=== PATIENT | female | born 1965 | race Caucasian/White ===

== ENCOUNTER → 2019-06-09 10:35 | Outpatient (CLI) | payer OTHER, SELFPAY ==
--- NOTE | ~2019-06-09 | US_ITS ---
EXAMINATION: US transvaginal EXAM DATE: 06/09/2019 11:39 INDICATION: Abnormal vaginal bleeding postmenopausal bleeding. TECHNIQUE: Pelvic transvaginal sonogram was performed. There are multiple grayscale and Doppler imag es available for interpretation. There is no prior study for comparison. FINDINGS: Uterus measures 7.4 x 5.9 x 5.2 cm, with a fibroid in the fundus measuring about 2.6 cm. E ndometrial stripe measures 5-6 mm, within normal limits. There is no free pelvic fluid. Right adnexa: The ovary measures 2.4 x 1.5 x 1.1 cm and is morphologically normal. Ovarian vascular f low confirmed. Left adnexa: The ovary measures 2.1 x 1.2 x 2.5 cm and is morphologically normal. Ovarian vascular fl ow confirmed. IMPRESSION: 1. Single fundal 2.6 cm fibroid. Reviewed, dictated and finalized at location B. K DIGGER
== END ==
PROVIDERS: PCP Family Medicine; Visit Provider Family Medicine
DX: N93.9 Abnormal uterine and vaginal bleeding, unspecified (principal); D25.9 Leiomyoma of uterus, unspecified
CPT/HCPCS: 76830

== ENCOUNTER → 2020-05-23 15:34 | Outpatient (CLI) | payer OTHER, SELFPAY ==
--- NOTE | ~2020-05-23 | MM_ITS ---
EXAMINATION: MM screening samuel BI w joanna HISTORY: Screening mammogram TECHNIQUE: Craniocaudal and mediolateral oblique 3-D tomosynthesis images were obtained and synthetic 2-D images were generated. CAD analysis was submitted and interpreted. COMPARISON: 02/01/2016, 11/18/2013 bilateral digital screening mammogram examinations BREAST PARENCHYMAL COMPOSITION: There are scattered areas of fibroglandular density. FINDINGS: There is no evidence of suspicious mass, calcification, or architectural distortion to sugg est malignancy in either breast. There has been no suspicious interval change. IMPRESSION: 1. No mammographic evidence of malignancy. 2. Recommend routine screening mammography in one year. BI-RADS Category 1: Negative Reviewed, dictated and finalized at location A. AL MEDIA EXECUTIVE
== END ==
PROVIDERS: PCP Family Medicine; Visit Provider Obstetrics & Gynecology
DX: Z12.31 Encounter for screening mammogram for malignant neoplasm of breast (principal)
CPT/HCPCS: 77063; 77067

== ENCOUNTER → 2020-08-20 09:44 | Outpatient (CLI) | payer OTHER, SELFPAY ==
--- NOTE | ~2020-08-20 | US_ITS ---
US abdomen complete EXAMINATION: US Abdomen Complete INDICATION: Diffuse abdominal pain PROCEDURE: Realtime High Resolution abdomen ultrasound. COMPARISON: No prior studies for comparison FINDINGS: Gallbladder within normal limits. No gallstones, pericholecystic fluid, gallbladder wall t hickening or biliary dilatation. Common bile duct measures 4 mm. Liver echotexture is increased, consistent with fatty infiltration.. Pancreas within normal limits. Pancreatic tail is obscured by bowel gas. Spleen is unremarkeable. Renal echotexture is within norm al limits bilaterally without hydronephrosis, contour deforming mass or renal stone. Right kidney crystal sures 10.5 cm. Left kidney measures 11.9 cm. Visualized aspects of the aorta and IVC are within normal limits. Portal vein is patent. No sonograph ic Murry's sign indicated by the technologist. IMPRESSION: 1: Fatty infiltration of the liver. Reviewed, dictated and finalized at location A.
== END ==
PROVIDERS: PCP Family Medicine; Visit Provider Physician Assistant
DX: R10.9 Unspecified abdominal pain (principal); K76.0 Fatty (change of) liver, not elsewhere classified
CPT/HCPCS: 76700

== ENCOUNTER 2020-12-24 10:18 | Emergency (ER) | payer OTHER, SELFPAY ==
--- NOTE | ~2020-12-24 | CT_ITS ---
EXAMINATION: CT abdomen pelvis w con EXAM DATE: 12/24/2020 14:30 INDICATION: Right-sided abdominal pain. TECHNIQUE: Spiral CT of the abdomen and pelvis was performed following intravenous injection of 100 m L Omnipaque 350. Axial, coronal and sagittal images of the abdomen and pelvis were reviewed. The do se-length product (DLP) for this examination was 1343.69 mGy-cm. The exposure was tailored according to patient size (auto mA exposure control), and iterative reconstruction (ASIR) was used as addition al dose reduction technique. There is no prior study for comparison. FINDINGS: The liver, spleen, adrenal glands and pancreas are unremarkable. Gallbladder is unremarkab le. No biliary obstruction. There is caliectasis of the left renal inferior moiety, could be some c omponent of congenital narrowing at its junction with the pelvis. There is a 4 mm stone in a left low er calyx. No obstructing stones. Nephrograms are symmetric. No renal mass. Uterus is retroverted and probably has 3 cm fibroid. The bladder is unremarkable. There is no retroperitoneal or pelvic lymp hadenopathy. Small umbilical fat-containing hernia. The appendix is not positively visualized. There is no pericecal inflammatory change to suggest appe ndicitis. The stomach and small bowel are unremarkable. There is expected amount of colonic stool . No free intraperitoneal gas. The heart is normal in size. There are no pericardial or pleural effusions. The lung bases are unremarkable. There are no osteoblastic or osteolytic lesions identif ied. IMPRESSION: 1. No acute intra-abdominal findings. 2. Mild to moderate left renal inferior moiety caliectasis probably some congenital narrowing at the renal pelvis. No delayed nephrogram. 3. Left nephrolithiasis. 4. Small umbilical hernia. Reviewed, dictated and finalized at location A. IMPRESSION: 1. No acute intra-abdominal findings. 2. Mild to moderate left renal inferior moiety caliectasis probably some conge nital narrowing at the renal pelvis. No delayed nephrogram. 3. Left nephrolithiasis. 4. Small umbilical hernia.
[2020-12-24 10:49] VITALS: BP 128/66; PULSE 60; RESP 20; TEMP 36.4; O2SAT 100
[2020-12-24 11:11] LABS: Basophils Percent Auto 0.6 % (0.2-1.2); Eosinophils Absolute Auto 0.2 K/mm3 (0-0.3); Eosinophils Percent Auto 3.1 % (0-4.4); Hematocrit 43.3 % (37.0-47.0); Hemoglobin 13.3 g/dL (12.0-15.0); Immature Granulocyte Absolute 0.02 K/mm3 (0.00-0.031); Immature Granulocyte Percent A 0.3 % (0-0.5); Lymphocytes Absolute Auto 1.73 K/mm3 (0.9-3.2); Lymphocytes Percent Auto 24.7 % (18.3-44.2); Mean Corpuscular HGB Conc 30.7 g/dl (32-36); Mean Corpuscular Hemoglobin 27.5 pg (26-34); Mean Corpuscular Volume 89.5 fl (80-100); Mean Platelet Volume 10.7 fl (7.4-10.4); Monocytes Absolute Auto 0.5 K/mm3 (0.1-0.6); Monocytes Percent Auto 7.6 % (2.6-8.5); Neutrophils Absolute Auto 4.5 K/mm3 (1.3-6.7); Neutrophils Percent Auto 63.7 % (45.5-73.1); Platelet Count Result 266 k/mm3 (150-375); Red Blood Count 4.84 M/mm3 (4.2-5.4); Red Cell Distribution Width 14.7 % (11.5-14.5)
[2020-12-24 11:26] LABS: Anion Gap 8 mmol/L (8-16); Blood Urea Nitrogen 12 mg/dL (7-17); Carbon Dioxide 26 mmol/L (22-30); Chloride 106 mmol/L (98-107); Estimated CRCL calculation 89 ml/min; Estimated Glomerular Filt Rate > 60; Glucose 121 mg/dL (65-110); Potassium 4.1 mmol/L (3.4-5.0); Sodium 140 mmol/L (137-145)
[2020-12-24 12:22] LABS: Add Urine Microscopic? YES; Appearance Urine Clear (Clear); Bacteria Urine Trace /hpf; Bilirubin Urine Negative (Negative); Blood Urine 1+ (Negative); Color Urine Straw (Yellow); Glucose Urine UA Negative (Negative); Ketones Urine Negative (Negative); Leukocyte Esterase Ur Negative LEU/UL (Negative); Nitrate Urine Negative (Negative); Protein Urine Negative (Negative); RBC Urine 0-2 /hpf (0-2); Specific Grav Ur 1.008 (1.001-1.035); Squamous Epithelial Cell Urine Rare /hpf (Few); Urobilinogen Urine Negative mg/dL (<2.0); WBC Urine 0-3 /hpf
[2020-12-24 12:52] LABS: Alanine Aminotransferase 22 U/L (4-35); Alkaline Phosphatase 101 U/L (38-126); Aspartate Amino Transferase 35 U/L (14-36); Bilirubin,Total 0.2 mg/dL (0.2-1.3); Lipase 71 U/L (23-300)
--- NOTE | 2020-12-24 14:10 | ED.ABDPAIN ---
HPI - Abdominal Pain General Chief Complaint: Abdominal Pain Stated Complaint: right side/back pain/nauseated Time Seen by Provider: 12/24/20 12:15 Source: patient Mode of arrival: ambulatory Limitations: no limitations History of Present Illness HPI narrative: 55-year-old female Essentially healthy, no previous abdominal operations Complains of a 1 week history of right-sided mid abdominal and flank pain She has not noticed anything that makes it worse, able to eat without issue She has not really noticed anything that makes it feel better either No vomiting, no dysuria or hematuria, no fever, and had normal bowel movements Related Data Home Medications Medication Instructions Recorded Confirmed aspirin 81 mg tablet,delayed mg PO DAILY tablet 08/17/20 08/17/20 release diltiazem HCl 120 mg mg PO 08/17/20 08/17/20 capsule,extended release 24 hr Allergies Allergy/AdvReac Type Severity Reaction Status Date / Time guaifenesin Allergy Unknown rash Verified 12/24/20 12:12 theophylline Allergy Unknown Unknown Verified 12/24/20 12:12 Review of Systems Review of Systems: All systems reviewed & are unremarkable except as noted in HPI and below Constitutional: Constitutional: Reports no additional constitutional complaints, Denies chills, Denies fever(s) and Denies headache(s) Eyes: Eyes: Reports no additional eye complaints and Denies change in vision ENT: Denies headache(s) and Denies sore throat Cardiovascular: Cardiovascular: Denies chest pain and Denies dyspnea Respiratory: Respiratory: Denies cough and Denies dyspnea Gastrointestinal: Gastrointestinal: Reports abdominal pain, Denies diarrhea and Denies vomiting Genitourinary: Genitourinary: Denies urinary frequency and Denies dysuria Musculoskeletal: Musculoskeletal: Denies deformity, Denies arthralgias, Denies joint swelling and Denies numbness Integumentary/Breasts: Skin/Breast: Denies rash and Denies wounds Neurologic: Denies headache(s), Denies focal weakness and Denies numbness Psychiatric: Psychiatric: Reports no additional psychiatric complaints Endocrine: Endocrine: Reports no additional endocrine complaints Hematologic/Lymphatic: Hematologic/Lymphatic: Reports no additional hematologic/lymphatic complaints Allergic/Immunologic: Allergic/Immunologic: Reports no additional allergic/immunologic complaints PMFSH Past Medical History Medical History Atrial fibrillation Diverticulosis large intestine w/o perforation or abscess w/bleeding GERD (gastroesophageal reflux disease) History of seizure Hypersomnia Insomnia MDD (major depressive disorder) CECI (obstructive sleep apnea) Surgical History Surgical History History of knee surgery History of lumpectomy of left breast [place] teeth extracted Family History Family History Sibling Family history of thyroid disease Family history of diabetes mellitus in first degree relative Hypertension Family history of elevated blood lipids Mother Hypertension Family history of elevated blood lipids Atrial fibrillation by electrocardiogram Father Family history of gastrointestinal disorder Family history of elevated blood lipids Family history of coronary artery disease Hypertension Cerebrovascular accident, Onset Age: 67 Daughter Tuberculosis Other Family history of malignant neoplasm of male breast Social History Social History Social History: Smoking status: Never smoker Second hand tobacco smoke exposure: No Alcohol intake: current Drinks per week: 5 Substance use: never Substance use type: does not use 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
[2020-12-24 14:22] VITALS: BP 128/80; PULSE 52; RESP 18; O2SAT 100
== END 2020-12-24 16:01 | disposition home or self-care (01) ==
PROVIDERS: Emergency Medicine; Emergency Provider Emergency Medicine; PCP Family Medicine
DX: R10.9 Unspecified abdominal pain (principal); I48.91 Unspecified atrial fibrillation; K21.9 Gastro-esophageal reflux disease without esophagitis; G47.33 Obstructive sleep apnea (adult) (pediatric); K42.9 Umbilical hernia without obstruction or gangrene; N20.0 Calculus of kidney; Z79.82 Long term (current) use of aspirin
CPT/HCPCS: 36415; 74177; 80048; 80076; 81001; 83690; 85025; 99284; Q9967

== ENCOUNTER 2021-07-06 13:02 | Outpatient (CLI) | payer OTHER, SELFPAY | END 2021-07-06 13:03 | disposition home or self-care (01) | PROVIDERS: PCP Family Medicine; Visit Provider Surgery | DX: Z01.818 Encounter for other preprocedural examination (principal); K42.9 Umbilical hernia without obstruction or gangrene | CPT/HCPCS: 36415; 86850; 86900; 86901 ==

== ENCOUNTER 2021-07-11 00:28 | Day surgery (SDC) | payer OTHER, SELFPAY ==
[2021-07-03 12:13] VITALS: BMI 38.3
--- NOTE | 2021-07-03 12:26 | PC.NURSE ---
Report to the Outpatient Waiting Room, entrance under the green pavilion located off [facility], at time 9:30 on date 07/11/21. OR Time: 11:30. - You and your visitor will be asked a series of questions to screen for COVID 19 for your protection. - A mask is required within the hospital. One visitor will be allowed to accompany the patient into the hospital. Patients visitor will be instructed to remain with patient at all times or leave the building. We will allow the visitor to come back to the postoperative area when patient is ready. Preoperative COVID Testing Requirements: No COVID Test needed if: (proof is required; if not received patient will have Rapid Test prior to entry) - Patient has received COVID Vaccine at least 14 days prior to procedure date or - Patient has positive COVID test result within last 90 days of surgery date. COVID Test needed if above criteria is not met Patients may have clear liquids (water, carbonated beverages, clear teas, apple juice) until 3 hours prior to surgery (8:30) with a maximum of 20 ounces. - No food from midnight until time of surgery Take the following medications with a SIP of water the morning of surgery: DILTIAZEM, FLUOXETINE, ANTIBIOTIC (IF STILL TAKING) Medications to discontinue per physician: VITAMINS/SUPPLEMENTS Date to take last dose: 07/07/21 Please no make-up, nail vietnamese, hairspray, perfume, deodorant, or body powder the day of surgery. No jewelry (including any body piercings) or valuables the day of surgery, leave them at home. Please take a shower or bath the night before, or the morning of, surgery with an antibacterial soap. Wear comfortable, loose fitting clothing. - Jewelry must be removed prior to entering the operating room. Rings and piercings that are not removed may be cut off. - The hospital will not accept responsibility for valuables. - Please leave all valuables, including medications, at home the day of surgery. If you are going home after surgery, a licensed roll off driver must drive you home. - NO public transportation without another adult. - We recommend that an adult stay with you for 24 hours following discharge. - We also recommend that you do not drive, make important decision, drink alcoholic beverages, or take any drugs that were not prescribed by your health care provider for at least 24 hours after your discharge time. Follow any additional instructions given to you from your surgeon. Telephone instructions given to DON DALEY and asked if any additional questions and then verbalized understanding. Patient advised to call surgeon office or pre surgery nurse liaison [phone] if any additional questions.
[2021-07-11] VITALS (12 sets, daily range): BP systolic 99–123; BP diastolic 55–68; PULSE 43–66; RESP 13–18; TEMP 36.6; O2SAT 92–100
--- NOTE | 2021-07-11 08:15 | WPDANESEPPF ---
Anes - Initial Pre Proc Eval Procedure: Operation Date: 07/11/21 11:30 Proposed Procedures p Laparoscopic Umbilical Hernia Repair with Mesh, Davinci Assisted - Fermin Paniagua DO Date/Time: 07/11/21 08:15 Surgeon: Fermin Paniagua DO Pre Op Diagnosis: umbilical hernia Patient Data Age: 55 Gender: F Height: 1.7 m Weight: 111.13 kg Allergies Allergy/AdvReac Type Severity Reaction Status Date / Time guaifenesin Allergy Intermediate rash Verified 07/11/21 09:53 theophylline Allergy Intermediate Rash Verified 07/11/21 09:53 Home Medications Medication Instructions Recorded Confirmed Type fluoxetine 20 mg tablet 20 mg PO DAILY #90 tablet 06/17/20 07/11/21 Rx aspirin 81 mg tablet,delayed 162 mg PO DAILY tablet 08/17/20 07/11/21 History release diltiazem HCl 120 mg 120 mg PO DAILY 08/17/20 07/11/21 History capsule,extended release 24 hr cholecalciferol (vitamin D3) 125 mcg PO DAILY 07/03/21 07/11/21 History [Vitamin D3] Patient hx anesthesia problems: none Family hx anesthesia problems: none Results Review: All pre-operative results and documents have been reviewed as part of the pre-operative evaluation. [facility] Past Medical History Medical History (Updated 07/11/21 @ 08:16 by Celestino Johnson MD) Anxiety Atrial fibrillation Diverticulosis large intestine w/o perforation or abscess w/bleeding Fatty liver GERD (gastroesophageal reflux disease) History of seizure Hypersomnia Insomnia MDD (major depressive disorder) Obesity CECI (obstructive sleep apnea) Surgical History Surgical History History of knee surgery History of lumpectomy of left breast [place] teeth extracted Family History Family History Sibling Family history of thyroid disease Family history of diabetes mellitus in first degree relative Hypertension Family history of elevated blood lipids Mother Hypertension Family history of elevated blood lipids Atrial fibrillation by electrocardiogram Father Family history of gastrointestinal disorder Family history of elevated blood lipids Family history of coronary artery disease Hypertension Cerebrovascular accident, Onset Age: 67 Daughter Tuberculosis Other Family history of malignant neoplasm of male breast Social History Social History Social History: Smoking status: Never smoker Second hand tobacco smoke exposure: No Alcohol intake: current Drinks per week: 4 Substance use: never Substance use type: does not use Living arrangements: with family 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 Gender identity (if verbalized by the patient): Female Sexual Orientation (if Verbalized by the Patient): Straight or Heterosexual Spiritual care concerns: No Anes - Eval Final PreProcedure Day of Procedure 07/11/21 08:15 Patient weight: obese Heart: regular rate and rhythm Lungs: clear to auscultation and normal air movement Airway: Mallampati scale class II Neurological: alert and oriented Last oral intake: >/= 8 hours ASA classification: III Emergent: no Anesthetic plan: proceed Anesthesia type and monitoring: general ETT Results Review: All pre-operative results and documents have been reviewed as part of the pre-operative evaluation. Informed Consent: The patient's anesthetic plan and its attendant risks and benefits were discussed with the patient/family/POA. Questions were solicited and answers provided to the satisfaction of the patient/family/POA.
[2021-07-11] MEDS: ACETAMINOPHEN 500 MG TABLET 1000 MG PO (09:56)
[2021-07-11] MEDS: LACTATED RINGERS 1,000 ML 30 ML IV CONT ×2 (10:08→14:23)
[2021-07-11] MEDS: KETOROLAC 15 MG/ML VIAL (*BKC) IV PUSH (10:08)
--- NOTE | 2021-07-11 12:11 | WPDHPUPDATE1 ---
History and Physical Update Update Date/Time: 07/11/21 12:11 History and Physical has been reviewed, including an updated exam of the patient. There are NO changes in the patient's condition. Risks, benefits, and alternatives have been discussed and questions answered. Patient agrees to proceed with procedure.
--- NOTE | 2021-07-11 12:11 | PM.IMHP ---
H&P: HPI History of Present Illness Date/Time: 07/11/21 12:11 Chief Complaint: Umbilical hernia Narrative: This is a 55-year-old woman who presents for umbilical hernia repair. She was last seen in August of 2020 wanted to delay surgery until this time. She reports no changes since last seen in the office. [facility] Past Medical History Medical History (Updated 07/11/21 @ 08:16 by Celestino Johnson MD) Anxiety Atrial fibrillation Diverticulosis large intestine w/o perforation or abscess w/bleeding Fatty liver GERD (gastroesophageal reflux disease) History of seizure Hypersomnia Insomnia MDD (major depressive disorder) Obesity CECI (obstructive sleep apnea) Surgical History Surgical History History of knee surgery History of lumpectomy of left breast [place] teeth extracted Family History Family History Sibling Family history of thyroid disease Family history of diabetes mellitus in first degree relative Hypertension Family history of elevated blood lipids Mother Hypertension Family history of elevated blood lipids Atrial fibrillation by electrocardiogram Father Family history of gastrointestinal disorder Family history of elevated blood lipids Family history of coronary artery disease Hypertension Cerebrovascular accident, Onset Age: 67 Daughter Tuberculosis Other Family history of malignant neoplasm of male breast Social History Social History Social History: Smoking status: Never smoker Second hand tobacco smoke exposure: No Alcohol intake: current Drinks per week: 4 Substance use: never Substance use type: does not use Living arrangements: with family 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 Gender identity (if verbalized by the patient): Female Sexual Orientation (if Verbalized by the Patient): Straight or Heterosexual Spiritual care concerns: No Meds Home Medications and Allergies Home Medications Medication Instructions Recorded Confirmed Type fluoxetine 20 mg tablet 20 mg PO DAILY #90 tablet 06/17/20 07/11/21 Rx aspirin 81 mg tablet,delayed 162 mg PO DAILY tablet 08/17/20 07/11/21 History release diltiazem HCl 120 mg 120 mg PO DAILY 08/17/20 07/11/21 History capsule,extended release 24 hr cholecalciferol (vitamin D3) 125 mcg PO DAILY 07/03/21 07/11/21 History [Vitamin D3] Allergies Allergy/AdvReac Type Severity Reaction Status Date / Time guaifenesin Allergy Intermediate rash Verified 07/11/21 09:53 theophylline Allergy Intermediate Rash Verified 07/11/21 09:53 Vital Signs Vital Signs - 24 hr 07/11/21 09:35 Temperature 36.6 C Pulse Rate 66 Respiratory Rate 16 Blood Pressure 123/60 Pulse Oximetry 97 Exam GI: GI Palp: Yes Hernia present (2 cm umbilical hernia) Assessment and Plan Assessment and plan (1) Umbilical hernia: Code(s): K42.9 - Umbilical hernia without obstruction or gangrene Status: Acute Assessment and Plan: I have recommended laparoscopic umbilical hernia repair with mesh, da melvin assisted. I have discussed the procedure, risks, benefits, and alternatives with the patient. All questions answered. No changes since last seen in office.
[2021-07-11] MEDS: ceFAZolin 2 GM/D5W 50 ML 2 GM/50 ML BAG IVPB (12:37)
--- NOTE | 2021-07-11 14:12 | W.PM.PROC2 ---
Procedure Note - Detailed Date of Procedure 07/11/21 Pre-op Diagnosis umbilical hernia Post-op Diagnosis Same Procedure Performed Laparoscopic Umbilical Hernia Repair with Mesh, da Mary Ellen assisted Surgeon Fermin Paniagua, Anesthesia General and Local (Exparel) Indications This is 55-year-old woman who presented with umbilical pain and bulge that had been present for the last couple years. It has recently increased in size and become more symptomatic. She was found to have a reducible umbilical hernia on physical exam. Discussions were made with the patient about treatment options and decision was made to proceed with robotic assisted laparoscopic umbilical hernia repair with mesh. Findings Laparoscopic umbilical hernia repair was performed. The patient was found to have a 1 cm umbilical hernia. There was some omentum going up into the hernia but this appeared reducible. There were also a few omental adhesions around the abdominal wall but these came down with careful dissection robotically. A robotic intraperitoneal mesh technique was utilized for repair. A Ventralight ST 11 cm round mesh was placed. This was sutured to the abdominal wall using 2 0 V lock running absorbable suture. There was some bleeding along the right lateral abdominal wall as the mesh was sutured in place. She also did appear to developed a small hematoma near where the sutures were placed. After completely running the suture circumferentially around the mesh, I carefully inspected the area there did not appear to be any further expansion of the hematoma and there did not appear to be any signs of active bleeding. No specimens were obtained for pathology. Description of Procedure Procedure as well as risks, benefits, and alternatives were discussed with the patient. Written consent was obtained and placed in chart prior to procedure. Patient was brought back to surgical suite. She was placed supine on operating table. Time-out was done to confirm patient and procedure. She was then intubated by the anesthesia department. A bump was placed under her left hip, and the bed was flexed slightly to extend the space between her costal margin and iliac crest. Her abdomen was prepped and draped in sterile fashion using chlorhexidine prep. A 5 millimeter incision was made in the left upper quadrant, and a 5 millimeter Optiview trocar was advanced through the abdominal layers under direct visualization. Once inside the abdominal cavity, carbon dioxide insufflation was used to create a pneumoperitoneum. Her abdomen was inspected. An 8 millimeter incision was made in the left lower quadrant, and an 8 millimeter robotic trocar was placed under direct visualization. Another 8 millimeter incision was made in the left lateral abdomen, and an 8 millimeter robotic trocar was placed under direct visualization. Exparel was infiltrated along the lateral abdominal can to perform a transversus abdominis plane block bilaterally. The 5 millimeter port was removed, the incision was extended to 12 millimeters, and a 12 millimeter air seal port was placed under direct visualization. A Jony-Callaway cone was also used to place an 0-Vicryl simple interrupted suture at this trocar site. The robotic arms were brought up to the patient's bedside and secured to the ports. The camera and instruments were inserted, and I then moved over to the robotic console and took control of the camera and instruments. After careful thorough inspection of the abdominal cavity, I began my dissection at the hernia. The hernia sac and preperitoneal fat was excised with scissors with electrocautery. This was removed and discarded. The falciform ligament was then taken down for several cm cephalad to allow for mesh placement. I then measured the hernia size. The hernia measured 1 cm. The fascia was closed using an 0-Stratafix running suture in a vertical fashion. An [address] mesh was then placed within t
[2021-07-11] MEDS: fentaNYL CITRATE INJ (*CRX) 100 MCG/2 ML VIAL 25 MCG IV PUSH ×5 (14:40→15:15)
[2021-07-11] MEDS: ONDANSETRON INJ 4 MG/2 ML VIAL IV PUSH (14:54)
[2021-07-11] MEDS: HALOPERIDOL LACTATE 5 MG/ML VIAL 1 MG IV PUSH (15:18)
[2021-07-11] MEDS: SCOPOLAMINE 1.5 MG PATCH TRANSDERM (15:18)
[2021-07-11] MEDS: oxyCODONE HCL (*CRX) 5 MG TAB IR PO (16:05)
[2021-07-11] MEDS: KETOROLAC 30 MG/ML VIAL (*BKC) IV PUSH (16:17)
== END 2021-07-11 17:08 | disposition home or self-care (01) ==
PROVIDERS: PCP Family Medicine; Visit Provider Surgery
PROC: (CPT 49652; principal; 2021-07-11 11:30)
DX: K42.9 Umbilical hernia without obstruction or gangrene (principal); K66.0 Peritoneal adhesions (postprocedural) (postinfection); L76.01 Intraoperative hemorrhage and hematoma of skin and subcutaneous tissue complicating a dermatologic procedure; Y83.8 Other surgical procedures as the cause of abnormal reaction of the patient, or of later complication, without mention of misadventure at the time of the procedure; G47.33 Obstructive sleep apnea (adult) (pediatric); F32.9 Major depressive disorder, single episode, unspecified; I48.91 Unspecified atrial fibrillation; K76.0 Fatty (change of) liver, not elsewhere classified; K57.30 Diverticulosis of large intestine without perforation or abscess without bleeding; G40.909 Epilepsy, unspecified, not intractable, without status epilepticus; F41.8 Other specified anxiety disorders; Z79.82 Long term (current) use of aspirin; E66.9 Obesity, unspecified; Z68.38 Body mass index [BMI] 38.0-38.9, adult
CPT/HCPCS: 49652; S2900; A9270; C1781; C9290; J0690; J1100; J1630; J1885; J2405; J2704; J2710; J3010; J7120

== ENCOUNTER → 2022-01-02 08:16 | Outpatient (CLI) | payer OTHER, SELFPAY ==
--- NOTE | ~2022-01-02 | CT_ITS ---
EXAMINATION: CT sinus wo con DATE: 01/02/2022 08:27 INDICATION: Chronic sinusitis TECHNIQUE: Computed tomography (CT) of the paranasal sinuses was performed without intravenous contra st. The dose-length product was 264.97 mGy-cm. Automated exposure control and iterative reconstructio n technique were employed. COMPARISON: CT dated 02/13/2015 FINDINGS: There is mild mucosal thickening of the right maxillary sinus. Mastoids are pneumatized. No air-fluid levels. No significant mucoperiosteal reaction. There is a left-sided eleanor bullosa. Righ tward nasal septal deviation. Ostiomeatal units are patent. IMPRESSION: 1. Mild right maxillary sinus disease. Reviewed, dictated and finalized at location A.
== END ==
PROVIDERS: PCP Family Medicine; Visit Provider Otolaryngology
DX: J32.0 Chronic maxillary sinusitis (principal)
CPT/HCPCS: 70486

== ENCOUNTER → 2022-02-14 14:59 | Outpatient (CLI) | payer OTHER, SELFPAY ==
--- NOTE | ~2022-02-14 | MM_ITS ---
EXAMINATION: MM screening [facility] BI w joanna HISTORY: Screening TECHNIQUE: Craniocaudal and mediolateral oblique 3-D tomosynthesis images were obtained and synthetic 2-D images were generated. CAD analysis was submitted and interpreted. COMPARISON: Comparison to multiple prior studies sequentially, with oldest reviewed study dated 09/2013. BREAST PARENCHYMAL COMPOSITION: There are scattered areas of fibroglandular density. FINDINGS: There is no evidence of suspicious mass, calcification, or architectural distortion to sugg est malignancy in either breast. There has been no suspicious interval change. IMPRESSION: 1. No mammographic evidence of malignancy. 2. Recommend routine screening mammography in one year. BI-RADS Category 1: Negative Reviewed, dictated and finalized at location A.
== END ==
PROVIDERS: PCP Family Medicine; Visit Provider Obstetrics & Gynecology
DX: Z12.31 Encounter for screening mammogram for malignant neoplasm of breast (principal)
CPT/HCPCS: 77063; 77067

== ENCOUNTER 2023-08-05 16:07 | Outpatient (CLI) | payer OTHER, SELFPAY ==
--- NOTE | ~2023-08-05 | XR_ITS ---
EXAMINATION: XR thoracic spine 2V DATE: 08/05/2023 16:43 INDICATION: Dorsalgia, unspecified. TECHNIQUE: 2 views of thoracic spine on 3 radiographs were obtained. COMPARISON: None. FINDINGS: There is 4 degrees dextrocurvature of thoracic spine. Vertebral body heights are normal. Th ere are endplate osteophytes at multiple levels. There is mildly decreased disc height at multiple le vels in mid thoracic spine. IMPRESSION: 1. Mild thoracic spondylosis. Reviewed, dictated and finalized at location E.
--- NOTE | ~2023-08-05 | XR_ITS ---
EXAMINATION: XR_CERV2-3V_CR DATE: 08/05/2023 16:43 INDICATION: Neck pain. TECHNIQUE: 4 views of cervical spine were obtained. COMPARISON: None. FINDINGS: There is 13 degrees levoscoliosis of cervical spine. Vertebral body heights are normal. The re is mildly decreased disc height at C3-C4 and C4-C5 and severely decreased disc height at C5-C6 and C6-C7. There is multilevel uncovertebral joint osteoarthritis, severe bilaterally at C4-C5, C5-C6, a nd C6-C7. There is multilevel mild to moderate facet joint osteoarthritis. There is mild central miranda l stenosis at C4-C5, C5-C6, and C6-C7. No prevertebral soft tissue swelling. IMPRESSION: 1. Severe cervical spondylosis. 2. Cervical levoscoliosis. Reviewed, dictated and finalized at location E.
== END 2023-08-05 16:08 ==
PROVIDERS: PCP Physician Assistant; Visit Provider Physician Assistant
DX: M43.02 Spondylolysis, cervical region (principal); M41.82 Other forms of scoliosis, cervical region; M43.04 Spondylolysis, thoracic region
CPT/HCPCS: 72040; 72070

== ENCOUNTER 2023-08-25 12:25 | Outpatient (CLI) | payer OTHER, SELFPAY ==
--- NOTE | ~2023-08-25 | MR_ITS ---
EXAMINATION: MR cervical spine wo con DATE: 08/25/2023 13:50 INDICATION: Spondylosis without myelopathy or radiculopathy. Neck pain. TECHNIQUE: Magnetic resonance imaging (MRI) of the cervical spine was performed without intravenous c ontrast. COMPARISON: Cervical spine radiographs 08/05/2023 FINDINGS: There is 3 degrees levocurvature of cervical spine. There is mild kyphosis of lower cervica l spine. Vertebral body heights are normal. There is mildly decreased disc height at C2-3 and C3-4, m oderately decreased disc height at C4-C5, severely decreased disc height at C5-C6, and moderately dec reased disc height at C6-C7. The spinal cord signal intensity is normal. The following disc levels ar e specifically discussed: C2-C3: There is a central protrusion. There is mild bilateral uncovertebral joint osteoarthritis. The re is mild bilateral facet joint osteoarthritis. There is no neural foraminal stenosis. There is no c entral canal stenosis. C3-C4: The disc is bulging. There is mild bilateral uncovertebral joint osteoarthritis. There is mode rate bilateral facet joint osteoarthritis. There is mild bilateral neural foraminal stenosis. There i s mild central canal stenosis. C4-C5: The disc is bulging. There is severe bilateral uncovertebral joint osteoarthritis. There is mi ld bilateral facet joint osteoarthritis. There is mild right and moderate left neural foraminal steno sis. There is mild central canal stenosis. C5-C6: The disc is bulging. There is severe bilateral uncovertebral joint osteoarthritis. There is mi ld bilateral facet joint osteoarthritis. There is moderate bilateral neural foraminal stenosis. There is mild central canal stenosis. C6-C7: The disc is bulging. There is severe bilateral uncovertebral joint osteoarthritis. There is no facet joint osteoarthritis. There is mild bilateral neural foraminal stenosis. There is mild central canal stenosis. C7-T1: There is a left foraminal extrusion. There is no uncovertebral joint osteoarthritis. There is severe bilateral facet joint osteoarthritis. There is mild right and moderate left neural foraminal s tenosis. There is no central canal stenosis. IMPRESSION: 1. Severe cervical spondylosis. Reviewed, dictated and finalized at location E.
== END 2023-08-25 12:26 | disposition home or self-care (01) ==
PROVIDERS: PCP Family Medicine; Visit Provider Physician Assistant
DX: M47.812 Spondylosis without myelopathy or radiculopathy, cervical region (principal)
CPT/HCPCS: 72141

== ENCOUNTER 2024-06-16 09:50 | Outpatient (CLI) | payer OTHER, SELFPAY ==
[2024-06-16 11:14] LABS: Hemoglobin 13.7 g/dL (12.0-15.0); Mean Corpuscular HGB Conc 31.1 g/dl (32-36); Mean Corpuscular Hemoglobin 27.8 pg (26-34); Mean Corpuscular Volume 89.2 fl (80-100); Mean Platelet Volume 10.5 fl (7.4-10.4); Platelet Count Result 255 k/mm3 (150-375); Red Blood Count 4.93 M/mm3 (4.2-5.4); Red Cell Distribution Width 14.4 % (11.5-14.5); White Blood Count 10.3 K/mm3 (4.5-10.0)
[2024-06-16 11:20] LABS: Add Urine Microscopic? YES; Appearance Urine Cloudy (Clear); Bacteria Urine Rare /hpf; Bilirubin Urine Negative (Negative); Blood Urine Trace (Negative); Color Urine Yellow (Yellow); Glucose Urine UA Negative (Negative); Ketones Urine Negative (Negative); Leukocyte Esterase Ur Trace LEU/UL (Negative); Nitrate Urine Negative (Negative); Non Pathogenic Casts 0-2; Protein Urine Negative (Negative); Specific Grav Ur 1.022 (1.001-1.035); Squamous Epithelial Cell Urine Few /hpf (Few); Urobilinogen Urine 0.2 mg/dL (<2.0); WBC Urine 0-5 /hpf (0-3)
[2024-06-16 11:29] LABS: Anion Gap 9 mmol/L (4-12); Blood Urea Nitrogen 17 mg/dL (7-17); Calcium 9.3 mg/dL (8.4-10.2); Carbon Dioxide 25 mmol/L (22-30); Chloride 104 mmol/L (98-107); Estimated Glomerular Filt Rate > 60; Glucose 90 mg/dL (65-110); Partial Thromboplastin Time 28.5 Seconds (22.3-36.8); Potassium 4.3 mmol/L (3.4-5.0); Prothrombin Time 13.4 Seconds (11.1-14.7); Sodium 138 mmol/L (137-145)
== END 2024-06-16 09:51 | disposition home or self-care (01) ==
LOC: ANHSURGERY 09:54
PROVIDERS: PCP Physician Assistant; Visit Provider Neurological Surgery
DX: M50.20 Other cervical disc displacement, unspecified cervical region (principal)
CPT/HCPCS: 36415; 80048; 81001; 85027; 85610; 85730; 93005

== ENCOUNTER 2024-08-12 16:19 | Observation (INO) | payer OTHER, SELFPAY ==
[2024-06-16 10:09] VITALS: BP 134/80; PULSE 56; RESP 16; TEMP 37; O2SAT 98; BMI 40.9
--- NOTE | 2024-06-16 10:25 | PC.NURSE ---
Report to the Outpatient Waiting Room, entrance under the green pavilion located off [facility], at time __0600am on date __06/30/24 . Planned Procedure Time: __0730am .? Time changes happen often and if your time is changed the preop area will call you the afternoon before. - You and your visitor will be asked to self-screen and do not enter if you have any COVID symptoms. Please call surgeon if you need to reschedule. - A mask is optional within the hospital at this time. Patients may have clear liquids (water, carbonated beverages, clear teas, apple juice) until 3 hours prior to surgery with a maximum of 20 ounces. - No food from midnight until time of surgery and no smoking, or chewing tobacco (or any form of nicotine). No chewing gum, candy or mints.(0430am) Take only the following medications with a SIP of water on the morning of surgery: ____Diltiazem, Fluoxetine, Tylenol, Tizanidine if needed DO NOT STOP ANY OF YOUR OTHER PRESCRIPTION MEDICATIONS PRIOR TO SURGERY EXCEPT THE FOLLOWING Hold all vitamins and supplements for 3 days per anesthesiologist.Date to take last dose is 06/26/24 Medications to discontinue per physician ___Eliquis per Dr Hussein Date to take last dose Eliquis per Dr Hussein Please no make-up, nail irish, hairspray, perfume, deodorant, or body powder the day of surgery.? No jewelry (including any body piercings) or valuables the day of surgery, leave them at home.? Please take a shower or bath the night before, or the morning of, surgery with an antibacterial soap.? Wear comfortable, loose fitting clothing.? - Jewelry must be removed prior to entering the operating room.? Rings and piercings that are not removed may be cut off. - The hospital will not accept responsibility for valuables.? - Please leave all valuables, including medications, at home the day of surgery. If you are going home after surgery, a licensed dedicated intermodal truck driver must drive you home.? - NO public transportation without another adult if you receive anesthesia. - We recommend that an adult stay with you for 24 hours following discharge. - We also recommend that you do not drive, make important decision, drink alcoholic beverages, or take any drugs that were not prescribed by your health care provider for at least 24 hours after your discharge time. Follow any additional instructions given to you from your surgeon. Office called and aware to give pt Anticoag instructions. Telephone instructions given to __Patient and asked if any additional questions and then verbalized understanding. Patient advised to call surgeon office or pre surgery nurse liaison [phone] if any additional questions.
--- NOTE | 2024-08-04 10:16 | SUR.PREOP ---
Report to the Outpatient Waiting Room, entrance under the green pavilion located off [facility], at time ___30____ on date ___08/11/24____. Planned Procedure Time: ____0____.? Time changes happen often and if your time is changed the preop area will call you the afternoon before. - You and your visitor will be asked to self-screen and do not enter if you have any COVID symptoms. Please call surgeon if you need to reschedule. - A mask is optional within the hospital at this time. Patients may have clear liquids (water, carbonated beverages, clear teas, apple juice) until 3 hours prior to surgery with a maximum of 20 ounces. - No food from midnight until time of surgery and no smoking, or chewing tobacco (or any form of nicotine). No chewing gum, candy or mints. - Infants may have breast milk until 4 hours before surgery, formula 6 hours prior to surgery. - Children will be allowed to drink immediately following surgery.? If applicable, please bring a bottle or sippy cup to assist with drinking. Juice, water, soda, and popsicles are readily available.? For infants on formula, please bring formula the day of surgery.? Pacifiers are allowed. Take only the following medications with a SIP of water on the morning of surgery: DILTIAZEM, FLUOXETINE, TYLENOL, TIZANIDINE DO NOT STOP ANY OF YOUR OTHER PRESCRIPTION MEDICATIONS PRIOR TO SURGERY EXCEPT THE FOLLOWING Hold all vitamins and supplements for 3 days per anesthesiologist. DATE TO LAST TAKE 08/07/24 Medications to discontinue per physician ELIQUIS PER DR LUCAS Date to take last dose 08/01/24 Please no make-up, nail malawian, hairspray, perfume, deodorant, or body powder the day of surgery.? No jewelry (including any body piercings) or valuables the day of surgery, leave them at home.? Please take a shower or bath the night before, or the morning of, surgery with an antibacterial soap.? Wear comfortable, loose fitting clothing.? Children are encouraged to wear pajamas. - Jewelry must be removed prior to entering the operating room.? Rings and piercings that are not removed may be cut off. - The hospital will not accept responsibility for valuables.? - Please leave all valuables, including medications, at home the day of surgery. If you are going home after surgery, a licensed train driver must drive you home.? - NO public transportation without another adult if you receive anesthesia. - We recommend that an adult stay with you for 24 hours following discharge. - We also recommend that you do not drive, make important decision, drink alcoholic beverages, or take any drugs that were not prescribed by your health care provider for at least 24 hours after your discharge time. For Pediatric surgeries, we recommend two adults accompany the child home. Follow any additional instructions given to you from your surgeon. Telephone instructions given to DON DALEY and asked if any additional questions and then verbalized understanding. Patient advised to call surgeon office or pre surgery nurse liaison [phone] if any additional questions.
[2024-08-11] VITALS (17 sets, daily range): BP systolic 101–131; BP diastolic 54–75; PULSE 52–65; RESP 14–20; TEMP 36.1–37; O2SAT 93–99
--- OUTSIDE RECORDS SUMMARY | 2024-08-11 00:26 | XMS_ITS | Clinical Summary ---
Author Organization [facility] Address [address] [place] [address] Care Team Providers Care Proofer Black And White Name Role Phone Jaye Schaffer MD Primary Care Provider + Source Comments [facility],non-owned Affiliates and Associated Physician Practices is amultiple site organization consisting of ambulatory clinics and hospital sitesin [place], [place], [place] and [place]. This disclosure is being madepursuant to the Care Everywhere program and may not contain all information available regarding this patient. Last updated [facility] Allergies Active Allergy Reactions Criticality Noted Date Comments Theophylline Other 08/21/2017 Dehydration, happened as child. Corticosteroids Rash Medium 08/21/2017 Medications * Be aware that medications may not be up to date on this document. Alwaysverify current medications with the patient. FLUoxetine HCl (PROZAC PO) Active Social History Tobacco Use Types Packs/Day Years Used Date Smoking Tobacco: Never Smokeless Tobacco: Never Comments No Sex and Gender Information Value Date Recorded Sex Assigned at Not on file Legal Sex Female 4:15 PM CDT Gender Identity Not on file Sexual Orientation Not on file Last Filed Vital Signs Vital Sign Reading Time Taken Comments Blood Pressure 130/76 12/21/2018 10:46 AM CDT Pulse 76 12/21/2018 10:46 AM CDT Temperature 36.6 C (97.8 F) 12/21/2018 10:46 AM CDT Respiratory Rate 16 12/21/2018 10:46 AM CDT Oxygen Saturation 99% 12/21/2018 10:46 AM CDT Inhaled Oxygen Concentration - - Weight 99.8 kg (220 lb) 12/21/2018 10:46 AM CDT Height 170.2 cm (5' 7 ) 12/21/2018 10:46 AM CDT Body Mass Index 34.46 12/21/2018 10:46 AM CDT Plan of Treatment Health Maintenance Due Date Last Done Comments COLOGUARD (AGES 45-75) - COL ON CA SCREENING 1964 COLON MONITORING 1964 COLONOSCOPY - COLON CA SCREENING 1964 CT COLONOGRAPHY - COLON CA SCREENING 1964 Colorectal Cancer Screening 1964 FIT - COLON CA SCREENING 1964 FLEX SIG - COLON CA SCREENING 1964 LIPID TESTING 1964 MAMMOGRAM 1964 HIV SCREENING 11/28/1979 HEPATITIS C SCREENING 11/23/1982 DTAP/TDAP/TD VACCINES (1 - Tdap) 11/28/1983 HEPATITIS B VACCINE (1 of 3 - 19+ 3-dose series) 11/28/1983 PAP with HPV 1994 PNEUMOCOCCAL VACCINE 50+ (1 of 1 - PCV) 2014 ZOSTER VACCINE (1 of 2) 2014 SCREENING FOR DIABETES 08/21/2017 COVID-19 VACCINE (1 - 2023-2 5 season) 2023 DEPRESSION SCREENING 04/15/2024 INFLUENZA VACCINE (Season Ended) 2024 HIB VACCINE Aged Out No longer eligi ble based on patient's age to complete this topic HPV VACCINE Aged Out No longer eligi ble based on patient's age to complete this topic MENINGOCOCCAL (Group B) VACC INE SHARED DECISION-MAKING Aged Out No longer eligibl e based on patient's age to complete this topic MENINGOCOCCAL GROUPS A/C/Y/W VACCINE Aged Out No longer eligible b ased on patient's age to complete this topic Insurance [employer] Care Teams Proofer Black And White Relationship Specialty Start Date End Date Jaye Schaffer MD [address] [place] [address] PCP - General Family Medicine 08/21/17
--- OUTSIDE RECORDS SUMMARY | 2024-08-11 00:26 | XMS_ITS | Continuity of Care Document ---
Author Organization [employer] [place] Address [address] [facility] [address] [place] [address] Phone Care Team Providers Care Human Resources Representative Name Role Phone Zeenat De Leon OT Unavailable Unavailable Procedures Procedure Date Therapeutic Activities Manual Therapy Therapeutic Exercise Neuromuscular Re-Ed Hot or Cold Pack Therapeutic Activities Neuromuscular Re-Ed Therapeutic Exercise Hot or Cold Pack Manual Therapy Neuromuscular Re-Ed Therapeutic Activities Therapeutic Exercise Manual Therapy Hot or Cold Pack Therapeutic Activities Neuromuscular Re-Ed Manual Therapy Therapeutic Exercise Hot or Cold Pack Therapeutic Activities Neuromuscular Re-Ed Therapeutic Exercise Manual Therapy Hot or Cold Pack Therapeutic Activities Manual Therapy Neuromuscular Re-Ed Hot or Cold Pack Therapeutic Exercise Therapeutic Activities Neuromuscular Re-Ed Therapeutic Exercise Manual Therapy Hot or Cold Pack Therapeutic Activities Neuromuscular Re-Ed Therapeutic Exercise Hot or Cold Pack Manual Therapy Therapeutic Activities Manual Therapy Hot or Cold Pack Neuromuscular Re-Ed Therapeutic Exercise Therapeutic Activities Neuromuscular Re-Ed Therapeutic Exercise Manual Therapy Ultrasound Hot or Cold Pack Therapeutic Activities Neuromuscular Re-Ed Manual Therapy Therapeutic Exercise Hot or Cold Pack Ultrasound Therapeutic Exercise Therapeutic Activities Neuromuscular Re-Ed Manual Therapy Ultrasound Hot or Cold Pack Manual Therapy Ultrasound Hot or Cold Pack Therapeutic Activities Neuromuscular Re-Ed Therapeutic Activities Neuromuscular Re-Ed Manual Therapy Hot or Cold Pack Ultrasound Therapeutic Activities Neuromuscular Re-Ed Manual Therapy Ultrasound Hot or Cold Pack Neuromuscular Re-Ed Hot or Cold Pack Therapeutic Activities Manual Therapy Ultrasound Orthotic Mgmt And Training Subsequent En counter Neuromuscular Re-Ed Therapeutic Activities Hot or Cold Pack Manual Therapy Orthotic Mgmt and Training WHFO rigid w/o joints CF Ultrasound Therapeutic Activities Neuromuscular Re-Ed Ultrasound Hot or Cold Pack Manual Therapy OT Evaluation Low Complexity Therapeutic Exercise Neuromuscular Re-Ed Therapeutic Activities Manual Therapy Hot or Cold Pack Theratube/band Theratube Handles - pair Therapeutic Exercise Therapeutic Activities Neuromuscular Re-Ed Manual Therapy Hot or Cold Pack Progress Note Therapeutic Exercise Therapeutic Activities Neuromuscular Re-Ed Manual Therapy Hot or Cold Pack Therapeutic Exercise Therapeutic Activities Neuromuscular Re-Ed Manual Therapy Hot or Cold Pack Therapeutic Exercise Therapeutic Activities Neuromuscular Re-Ed Manual Therapy Hot or Cold Pack Therapeutic Exercise Neuromuscular Re-Ed Manual Therapy Hot or Cold Pack Therapeutic Exercise Therapeutic Activities Neuromuscular Re-Ed Manual Therapy Hot or Cold Pack Therapeutic Exercise Therapeutic Activities Neuromuscular Re-Ed Manual Therapy Hot or Cold Pack Therapeutic Exercise Therapeutic Activities Manual Therapy Hot or Cold Pack Therapeutic Exercise Therapeutic Activities Manual Therapy Hot or Cold Pack Therapeutic Exercise Therapeutic Activities Manual Therapy Hot or Cold Pack Therapeutic Exercise Therapeutic Activities Manual Therapy Hot or Cold Pack Therapeutic Exercise Therapeutic Activities Manual Therapy Hot or Cold Pack OT Evaluation Low Complexity Therapeutic Exercise Manual Therapy Hot or Cold Pack Advance Directives Directive Yes / No Effective Date File Name No Information Encounters Encounter Description Practice Location Reason(s) For Visit Diagnoses Date Provider Providers Copied on Encounter [facility] [address] [facility], [place], [place], [id number], tel:[phone] [place] No Information 2 Moises Epperson. . Referring Provider: Jaye Schaffer , [address], [place], [address]. tel:[phone] [place] [address] [address], [place], [place], [address], tel:[phone] [place] No Information 2 Moises Epperson. . Referring Provider: Jaye Schaffer , [address], [place], [address]. tel:[phone] [place] [address] [address] [facility], [place], [place], [id number], tel:[phone] [place] No Information 2 Moises Epperson. . Referring Provider: Jaye Schaffer , [address], [place], [address]. tel:[phone] [facility] [address], [place], [place], [address], [place] tel:[phone] [place] No Information 2 Moises Epperson. . Referring Provider: Jaye Schaffer , [address], [place], [address]. tel:[phone] [facility], [place], [place], [address], [place] tel:[phone] [place] No Information Sep-0 2 Harig Zeenat. . Referring Provider: Jaye Schaffer , [address] [facility], [place], [address]. tel:[phone] [place] [address] [address], [place], [place], [address], [place] tel:[phone] [place] No Information Dec-0 2 Harig Zeenat. . Referring Provider: Jaye Schaffer , [address] [facility], [place], [address]. tel:[phone] [place] [address] [address] [facility], [place], [place], [address], [place] tel:[phone] [place] No Information 2 Harig Zeenat. . Referring Provider: Jaye Schaffer , [address] [facility], [place], [address]. tel:[phone] [place], [place] [id number] [facility], [place], [place], [address], [place] tel:[phone] [place] No Information 2 Harig Zeenat. . Referring Provider: Jaye Schaffer , [address] [facility], [place], [address]. tel:[phone] [place] [address] [address] [facility], [place], [place], [address], [place] tel:[phone] [place] No Information 2 Harig Zeenat. . Referring Provider: Jaye Schaffer , [address] [facility], [place], [address]. tel:[phone] [place], [place] [address] [facility], [place], [place], [address], [place] tel:[phone] [place] No Information 2 Harig Zeenat. . Referring Provider: Jaye Schaffer , [address] [facility], [place], [address]. tel:[phone] [facility], [place], [place], [address], [place] tel:[phone] [place] No Information 2 Harig Zeenat. . Referring Provider: Jaye Schaffer , [address] [facility], [place], [address]. [phone] [facility] [address], [place], [place], [address], [place] tel:[phone] [place] No Information 2 Harig Zeenat. . Referring Provider: Jaye Schaffer , [address] [facility], [place], [address]. tel:-[phone] [place], [place] [id number] [facility], [place], [place], [address], [place] tel:[phone] [place] No Information 2 Harig Zeenat. . Referring Provider: Jaye Schaffer , [address] [facility], [place], [address]. tel:-[phone] [place] [address] [address], [place], [place], [address], [place] tel:[phone] [place] No Information 2 Harig Zeenat. . Referring Provider: Jaye Schaffer , [address] [facility], [place], [address]. tel:[phone] [place], [place] [address], [place], [place], [address], [place] tel:[phone] [place] No Information 2 Harig Zeenat. . Referring Provider: Jaye Schaffer , [address] [facility], [place], [address]. tel:[phone] [place], [place] [address] [address], [place], [place], [address], [place] tel:[phone] [place] No Information 202 2 Harig Zeenat. . Referring Provider: Jaye Schaffer , [address] [facility], [place], [address]. tel:[phone] [facility] [address], [place], [place], [address], tel:[phone] [place] No Information 2 Harig Zeenat. . Referring Provider: Jaye Schaffer , [address] [facility], [place], [address]. tel:[phone] [facility] [address] [address], [place], [place], [address], [place] tel:[phone] [place] No Information 2 Harig Zeenat. . Referring Provider: Jaye Schaffer , [address] [facility], [place], [address]. tel:[phone] [facility], [id number], [place] tel:[phone] [place] No Information 2 Harig Zeenat. . Referring Provider: Jaye Schaffer , [address] [facility], [place], [address]. tel:[phone] [facility], [id number], tel:[phone] [place] No Information 8 Screen Clinician. . Referring Provider: Physician Screen. [facility] [address], [place], [place], [address], [place] tel:[phone] [place] Muscle weakness (generalized)P ain in right shoulderPain in right elbowOth symptoms and signs involving the musculoskeleta l systemOther general symptoms and signsStrain of musc/tend the rotator cuff of right shoulder, subsLateral epicondylitis, right elbow Oct-0 3-[address] [facility], [address] [place] [address], [address], . tel:[phone] [facility] [address], [place], [place], [address], tel:[phone] [place] Muscle weakness (generalized)P ain in right shoulderPain in right elbowOth symptoms and signs involving the musculoskeleta l systemOther general symptoms and signsStrain of musc/tend the rotator cuff of right shoulder, subsLateral epicondylitis, right elbow Oct-0 1-[address] [facility], [address], [place], [address], . tel:[phone] [facility] [address] [facility], [place], [place], [address], tel:[phone] [place] Muscle weakness (generalized)P ain in right shoulderPain in right elbowOth symptoms and signs involving the musculoskeleta l systemOther general symptoms and signsStrain of musc/tend the rotator cuff of right shoulder, subsLateral epicondylitis, right elbow Sep-2 6-[address] [facility], [address], [place], [address], . tel:[phone] [facility] [address] [facility] [address], [place], [place], [address], tel:[phone] [place] Muscle weakness (generalized)P ain in right shoulderPain in right elbowOth symptoms and signs involving the musculoskeleta l systemOther general symptoms and signsStrain of musc/tend the rotator cuff of right shoulder, subsLateral epicondylitis, right elbow Sep-2 4-[address] [facility], [address], [place], [address], . tel:[phone] [facility], [place], [place], [address], tel:[phone] [place] Muscle weakness (generalized)P ain in right shoulderPain in right elbowOth symptoms and signs involving the musculoskeleta l systemOther general symptoms and signsStrain of musc/tend the rotator cuff of right shoulder, subsLateral epicondylitis, right elbow Sep-1 9-201 8 Hauschild Rossi. [address] [place] [address], [address], [place], [place], [facility], [place]. tel:[phone] [facility] [address], [place], [place], [address], tel:[phone] [place] Muscle weakness (generalized)P ain in right shoulderPain in right elbowOth symptoms and signs involving the musculoskeleta l systemOther general symptoms and signsStrain of musc/tend the rotator cuff of right shoulder, subsLateral epicondylitis, right elbow Sep-1 7-201 [address] [place] [address], [address], [place], [place], [facility], [place]. tel:[phone] [facility] [address], [place], [place], [address], [place] tel:[phone] [place] Muscle weakness (generalized)P ain in right shoulderPain in right elbowOth symptoms and signs involving the musculoskeleta l systemOther general symptoms and signsStrain of musc/tend the rotator cuff of right shoulder, subsLateral epicondylitis, right elbow Sep-1 2-[address] [address] [facility], [address], [place], [address], [place]. tel:[phone] [facility] [address], [place], [place], [address], [place] tel:[phone] [place] Muscle weakness (generalized)P ain in right shoulderPain in right elbowOth symptoms and signs involving the musculoskeleta l systemOther general symptoms and signsStrain of musc/tend the rotator cuff of right shoulder, subsLateral epicondylitis, right elbow Sep-1 0-[address] [facility], [address], [place], [address], [place]. tel:[phone] [facility] [address], [place], [place], [address], tel:[phone] [place] Muscle weakness (generalized)P ain in right shoulderPain in right elbowOth symptoms and signs involving the musculoskeleta l systemOther general symptoms and signsStrain of musc/tend the rotator cuff of right shoulder, subsLateral epicondylitis, right elbow Sep-0 7-201 8 Hauschild Rossi. [address] [facility] [place], [address], [place], [place], [facility], . tel:[phone] [facility], [place], [place], [address], tel:[phone] [place] Muscle weakness (generalized)P ain in right shoulderPain in right elbowOth symptoms and signs involving the musculoskeleta l systemOther general symptoms and signsStrain of musc/tend the rotator cuff of right shoulder, subsLateral epicondylitis, right elbow Sep-0 4-201 8 Hauschild Rossi. [address] [place] [address], [address], [place], [facility], . tel:[phone] [facility], [place], [place], [address], tel:[phone] [place] Muscle weakness (generalized)P ain in right shoulderPain in right elbowOth symptoms and signs involving the musculoskeleta l systemOther general symptoms and signsStrain of musc/tend the rotator cuff of right shoulder, subsLateral epicondylitis, right elbow Aug-3 1-[address] [address] [facility], [address], [place], [place], [facility], . tel:[phone] [facility], [place], [place], [address], tel:[phone] [place] Muscle weakness (generalized)P ain in right shoulderPain in right elbowOth symptoms and signs involving the musculoskeleta l systemOther general symptoms and signsStrain of musc/tend the rotator cuff of right shoulder, subsLateral epicondylitis, right elbow Aug-2 7-[address] [facility], [address], [place], [address], [place]. tel:[phone] [employer] [facility] [facility] [address], [place], [place], [address], [place] tel:[phone] [place] Muscle weakness (generalized)P ain in right shoulderPain in right elbowOth symptoms and signs involving the musculoskeleta l systemOther general symptoms and signsStrain of musc/tend the rotator cuff of right shoulder, subsLateral epicondylitis, right elbow [address] [facility], [address], [place], [address], [place]. tel:[phone] Family History Family Member Type Diagnosis Age At Onset No Information Payers Payer name Insurance type Covered republican ID David burks(s) [employer] [id number] Social History Type Description Quantity Date Captured Comments Sex Female Smoking Status No Information Chief Complaint And Reason For Visit No Information Reason For Referral Reason For Referral No Information History Of Present Illness Encounter Date Complaint History Of Prese nt Illness No Information Functional Status Date Functional Assessmen t No Information Instructions Date Instruction Additional Infor tommy Dietary needs education Related to Overweight Prescribed activity/exercise edu cation Related to Overweight Assessments Type Assessment Date No Information Patient Care Teams Name Effective Dates (start - stop) Status Members No Information
--- OUTSIDE RECORDS SUMMARY | 2024-08-11 00:26 | XMS_ITS | Clinical Summary ---
Author Organization [employer] Address [address] [place]: Epic Prelude ADT FELIX JOSHI [address] Care Team Providers Care Pilling Machine Operator Name Role Phone Unavailable Primary Care Provider Unavailabl e Allergies Active Allergy Reactions Criticality Noted Date Comments Xanthines Rash High 10/26/2021 Medications FLUoxetine (PROzac) 10 mg tablet Take 1 Tablet (10 mg) by mouth daily. 90 Tablet 3 09/25/19 23 12:00 PM CDT Active exenatide microspheres (Bydureon BCise) 2 mg/0.85 mL Auto-Injector Inject 2 mg subcutaneously every 7 days. 3.4 mL 1 022 Active Insulin [place], Disposable, 31 gauge x 5/16 Needle Use as directed 100 Each 10/28/19 5:27 PM CDT 022 Active liraglutide (Victoza 2-Marvel) 0.6 mg/0.1 mL (18 mg/3 mL) Inject 0.6 mg subcutaneously once daily for 7 days, then inject 1.2 mg subcutaneously once daily. Not to exceed 1.8 mg per day. 6 mL 5 022 Active liraglutide (Victoza 3-Marvel) 0.6 mg/0.1 mL (18 mg/3 mL) INJECT 0.6 MG UNDER THE SKIN ONCE DAILY FOR 7 DAYS, THEN 1.2 MG UNDER THE SKIN ONCE DAILY, THEN INJECT 1.8 MG UNDER THE SKIN ONCE DAILY THEREAFTER 9 mL 2 12/10/19 22 10:49 AM CDT 022 Active amoxicillin-cla vulanate (AUGMENTIN) 875-125 mg tablet Take 1 Tablet by mouth every 12 hours for 7 days 14 Tablet 03/06/20 5:39 PM AUTOMATIC THREAD WINDER Active azelastine (ASTELIN) 137 mcg/actuation nasal spray Administer 1 spray in each nostril every 12 hours 30 mL 03/06/20 5:39 PM [employer] W[employer] 022 Active fluticasone propionate (FLONASE) 50 mcg/spray [place], Suspension nasal inhaler Administer 1 spray into each nostril once daily 16 Gram 03/06/20 5:39 PM [employer]OMAT[employer] W[employer]ER 022 Active predniSONE (DELTASONE) 10 mg tablet Take 4 tablets by mouth daily for 3 days, then 3 tabs daily for 3 days, then 2 tabs daily for 3 days, and then 1 tab daily for 3 days. 30 Tablet 03/23/20 22 4:48 PM [employer] W[employer] 022 Active dexAMETHasone (DECADRON) 6 mg Tablet Take 1 tablet ( 6 mg ) by mouth twice daily for 3 days, then take 1/2 tablet ( 3 mg ) by mouth twice daily for 3 days. 9 Tablet 06/20/19 23 5:04 PM [employer] W[employer] 023 Active diltiaZEM (Cartia XT) 120 mg Controlled Delivery 24 hour capsule Take 1 Capsule (120 mg) by mouth daily. 90 Capsule 1 05/13/19 24 12:02 PM AUTOMAT[employer]READ WINDER 023 Active tiZANidine (ZANAFLEX) 2 mg Tablet Take 1 Tablet (2 mg) by mouth 3 times daily as needed for muscle spasticity. 90 Tablet 04/01/20 23 3:52 PM AUTOMAT[employer] THREAD WINDER 023 Active FLUoxetine (PROzac) 20 mg tablet Take 1 Tablet (20 mg) by mouth daily. 90 Tablet 1 05/13/19 24 12:02 PM AUT[employer] W[employer] 024 Active fluconazole (DIFLUCAN) 150 mg tablet Take 1 tablet by mouth now, then repeat dose in 7 days. 2 Tablet 07/24/19 24 3:16 PM CDT 024 Active triamcinolone acetonide (KENALOG) 0.1 % Ointment Apply to affected area(s) two times daily. 60 Gram 1 07/24/19 24 3:16 PM CDT 024 Active meloxicam (MOBIC) 7.5 mg tablet Take 1 Tablet (7.5 mg) by mouth daily. 30 Tablet 08/05/19 24 5:04 PM CDT 024 Active gabapentin (NEURONTIN) 300 mg capsule Take 1 Capsule (300 mg) by mouth 2 times daily. 60 Capsule 08/14/19 24 11:57 AM CDT 024 Active diltiaZEM (DILACOR XR) 120 mg Extended Release capsule Take 1 capsule (120 mg total) by mouth daily 90 Capsule 1 09/20/19 24 11:48 AM CDT 024 Active FLUoxetine (PROzac) 40 mg capsule Take 1 Capsule (40 mg) by mouth daily. 90 Capsule 1 11/05/19 24 11:53 AM CDT 024 Active apixaban (Eliquis) 5 mg tablet Take 1 tablet (5 mg total) by mouth 2 (two) times a day 60 Tablet 025 Active tiZANidine (ZANAFLEX) 6 mg Take 1 Capsule (6 mg) by mouth nightly as needed FOR MUSCLE SPASTICITY. 30 Capsule 08/05/19 24 5:04 PM CDT 024 2024 Discontinued Encounters Date Type Department Care Team Description 06/24/2024 External Device Data [facility]STRA[facility] Provider, Abstract 06/23/2024 External Device Data [facility]STRA[facility] Provider, Abstract from Last 3 Months Immunizations Immunization Administration Dates Next Due INFLUENZA VACCINE QUADRIVALENT 6 MOS UP PF IM ,01/13/2022 Social History Tobacco Use Types Packs/Day Years Used Date Smoking Tobacco: Never Assessed Comments Unknown Sex and Gender Information Value Date Recorded Sex Assigned at Not on file Legal Sex Female 3:27 PM CDT Gender Identity Not on file Sexual Orientation Not on file Plan of Treatment Health Maintenance Due Date Last Done Comments DTAP/TDAP/TD VACCINES (1 - Tdap) 11/28/1983 HEPATITIS B VACCINES (1 of 3 - 19+ 3-dose series) 11/28/1983 HPV/Cotest (21-29) 1985 CERVICAL CANCER SCREENING 1994 HPV/Cotest (30-65) 1994 PAP SMEAR 1994 BREAST CANCER SCREENING 2004 COLORECTAL SCREENING 2009 Colorectal Cancer Screening 2009 FIT-DNA Q 3 years 2009 FIT/FOBT Q 1 year 2009 Flex Sig/CT Colonography Q 5 years 2009 ZOSTER VACCINE (1 of 2) 2014 INFLUENZA VACCINE (#1) 2023 02/02/2023, 2021 Insurance RX [facility] [employer] (INTERNAL) [facility]
--- OUTSIDE RECORDS SUMMARY | 2024-08-11 00:26 | XMS_ITS | Clinical Summary ---
Author Organization [facility] Medical Office Building B Address [address] [place] [id number] Care Team Providers Care Puppet Engineer Name Role Phone Jaye Schaffer MD Primary Care Provider Allergies Active Allergy Reactions Criticality Noted Date Comments Corticosteroids (Glucocorticoids) Rash Medium Theophylline-Guaifenesin Rash Medium 11/28/2017 Xanthines Rash High 10/26/2021 Medications FLUoxetine (PROzac) 20 mg capsule Take 2 capsules (40 mg total) by mouth daily Active clobetasoL (TEMOVATE) 0.05 % cream 1 Active omeprazole (PriLOSEC) 40 mg capsule omeprazole 40 mg capsule,delaye d release Active azelastine (ASTELIN) 137 mcg (0.1 %) nasal spray 2 Active fluticasone propionate (FLONASE) 50 mcg/actuation nasal spray 2 Active predniSONE (DELTASONE) 10 mg tablet 2 Active tiZANidine (ZANAFLEX) 2 mg tablet 3 Active amoxicillin-clavu lanate (AUGMENTIN) 875-125 mg per tablet Take 1 tablet by mouth every 12 (twelve) hours 2 Active dexAMETHasone (DECADRON) 6 mg tablet Take 1 tablet ( 6 mg ) by mouth twice daily for 3 days, then take 1/2 tablet ( 3 mg ) by mouth twice daily for 3 days. 3 Active exenatide ER microspheres (Bydureon BCise) 2 mg/0.85 mL auto-injector 2 mg once a week 2 Active liraglutide (Victoza 2-Marvel) 0.6 mg/0.1 mL (18 mg/3 mL) injection INJECT 0.6 MG UNDER THE SKIN ONCE DAILY FOR 7 DAYS, THEN 1.2 MG UNDER THE SKIN ONCE DAILY, THEN INJECT 1.8 MG UNDER THE SKIN ONCE DAILY THEREAFTER 2 Active pen needle, diabetic 31 gauge x 5/16 needle as directed 2 Active apixaban (ELIQUIS) 5 mg tablet Take 1 tablet (5 mg total) by mouth 2 (two) times a day 60 tablet 5 Active dilTIAZem XR 120 mg 24 hr capsule TAKE 1 CAPSULE BY MOUTH DAILY 90 capsule 1 5 Active Active Problems Problem Noted Date Diagnosed Date Atypical facial pain 07/11/2023 Morbid (severe) obesity due to excess calories 1 04/16/2021 Encounters Date Type Department Care Team Description 06/16/2024 12:00 PM COMPUTER PUBLISHER Office Visit [facility] at [address] [phone] Bebe De Jesus, CRISTINE Non-recurrent acute serous otitis media of left ear (Primary Dx) from Last 3 Months Immunizations Immunization Administration Dates Next Due Influenza, Quadrivalent, Split, Intramuscular Influenza, Quadrivalent, Spl it, Preservative Free, Intramuscular 02/02/2023,01/13/2022 Influenza, Trivalent, IM (MDV) 01/25/2018,2014 Surgical History Surgery Date Site/Laterality Comments KNEE SURGERY 04/15/2007 - 04/14/2008 Right BREAST LUMPECTOMY 04/15/1988 - 04/14/1989 HERNIA REPAIR 2021 Medical History Medical History Date Comments Gastric reflux Seizures (HCC) Sleep apnea Depression Family History Medical History Relation Name Comments Diabetes Brother Todd Heart disease Brother Todd Hypertension Brother Todd Stroke Brother Todd Arthritis Father Shilo Clotting disorder Father Shilo Heart attack Father Shilo Heart disease Father Shilo Stroke Father Shilo Diabetes Maternal Grandfather Anemia Mother Jaclyn Heart disease Mother Jaclyn Hypertension Mother Jaclyn Stroke Paternal Grandfather Cancer Sister Relation Name Status Comments Brother Todd Father Shilo Maternal Grandfather Mother Jaclyn Paternal Grandfather Sister Social History Tobacco Use Types Packs/Day Years Used Date Smoking Tobacco: Never Smokeless Tobacco: Never Tobacco Cessation:Counseling Given: Not Answered Alcohol Use Standard Drinks/Week Comments Yes 0 (1 standard drink = 0.6 oz pur e alcohol) AUDIT-C Answer Date Recorded Q1: How often do you have a drink containing alc ohol? 2-4 times a month 07/01/2023 Q2: How many drinks containi ng alcohol do you have on a typical day when you are drinking? 1 or 2 07/01/2023 Frequency of Binge Drinking Not on file 06/13 Comments Unknown Sex and Gender Information Value Date Recorded Sex Assigned at Not on file Legal Sex Female 10:40 AM CDT Gender Identity Female 06/27/2023 12:09 PM CDT Sexual Orientation Straight 06/27/2023 12 :09 PM CDT Obstetrics History Last Filed Vital Signs Vital Sign Reading Time Taken Comments Blood Pressure 134/68 06/16/2024 12:07 PM COMPUTER PUBLISHER Pulse 84 06/16/2024 12:07 PM COMPUTER PUBLISHER Temperature 36.3 C (97.4 F) 06/16/2024 12:07 PM COMPUTER PUBLISHER Respiratory Rate 24 06/16/2024 12:07 PM COMPUTER PUBLISHER Oxygen Saturation 98% 06/16/2024 12:07 PM COMPUTER PUBLISHER Inhaled Oxygen Concentration - - Weight 118.8 kg (262 lb) 06/16/2024 12:07 PM COMPUTER PUBLISHER Height 170.2 cm (5' 7 ) 04/29/2024 2:29 PM COMPUTER PUBLISHER Body Mass Index 41.04 04/29/2024 2:29 PM COMPUTER PUBLISHER Plan of Treatment Health Maintenance Due Date Last Done Comments Breast Cancer Screening-Mammogram 1964 Cervical Cancer Screening 1964 Colon Cancer Screening-Colonoscopy 1964 Depression Screening 1964 Hepatitis C Screening 1964 DTaP/Tdap/Td Vaccine (1 - Tdap) 11/28/1975 Hepatitis B Screening 1982 Regular Well Visit/Exam 18-64 1982 Zoster Vaccine (1 of 2) 2014 Influenza Vaccine (Season Ended) 2024 02/02/2023, 01/13/2022, 01/25/2018, Additional history exists Pneumococcal vaccine <65 Aged Out No longer eligible based on patient's age to complete this topic Insurance [facility] [employer] [facility] [id number] [employer]ALTHLINK PPO POS [facility] [id number] Care Teams Puppet Engineer Relationship Specialty Start Date End Date Jaye Schaffer MD [address] [place] [address] PCP - General Family Medicine 11/18/17
--- OUTSIDE RECORDS SUMMARY | 2024-08-11 00:26 | XMS_ITS ---
Author Organization Unknown Medications Medication Instructions Effective Dates (start - stop) Status 24 HR diltiazem hydrochlorid e 120 MG Extended Release Oral Capsule - Comp leted tizanidine 6 MG Oral Capsule [id number] 0:00:00Z - Completed fluconazole 150 MG Oral Tablet 2023-07-24 T00:00:00Z - Completed prednisone 10 MG Oral Tablet [id number] 0:00:00Z - Completed triamcinolone acetonide 0.00 1 MG/MG Topical Ointment - Completed fluoxetine 40 MG Oral Capsule 2023-11-04 00:00:00Z - Completed 24 HR diltiazem hydrochlorid e 120 MG Extended Release Oral Capsule [Cartia] - Completed tizanidine 2 MG Oral Tablet [id number] :00:00Z - Completed fluoxetine 40 MG Oral Capsule 2023-07-24 00:00:00Z - Completed gabapentin 300 MG Oral Capsule 2023-08-14 T00:00:00Z - Completed tizanidine 2 MG Oral Tablet [id number] :00:00Z - Completed meloxicam 7.5 MG Oral Tablet [id number] 0:00:00Z - Completed 24 HR diltiazem hydrochlorid e 120 MG Extended Release Oral Capsule - Comp leted Patient Care team information Name Category Status Period Participants - - Proposed period not known -
--- OUTSIDE RECORDS SUMMARY | 2024-08-11 00:26 | XMS_ITS | Referral Summary ---
Author Organization [facility] Medical Office Building B Address [address] [place] [address] Care Team Providers Care Objective C Developer Name Role Phone Jaye Schaffer MD Primary Care Provider Encounters Date Type Department Care Team Description 06/16/2024 12:00 PM MARINE ERECTOR Office Visit [facility] at [address] [phone] Bebe De Jesus NP Non-recurrent acute serous otitis media of left ear (Primary Dx) from Last 3 Months Allergies Active Allergy Reactions Criticality Noted Date [...] tablet by mouth every 12 (twelve) hours 11/22/202 2 Active dexAMETHasone (DECADRON) 6 mg tablet [...] 2 (two) times a day 60 tablet 11 5 Active dilTIAZem XR 120 mg 24 hr capsule TAKE 1 CAPSULE BY MOUTH DAILY 90 capsule 1 5 Active Active Problems Problem Noted Date Diagnosed Date Atypical facial pain 07/11/2023 Morbid (severe) obesity due to excess calories 1 04/16/2021 Immunizations Immunization Administration Dates Next Due Influenza, Quadrivalent, Split, Intramuscular Influenza, Quadrivalent, Spl it, Preservative Free, Intramuscular 02/02/2023,01/13/2022 Influenza, Trivalent, IM (MDV) 01/25/2018,2014 Social History Tobacco Use Types Packs/Day Years [...] Orientation Straight 06/27/2023 12 :09 PM CDT Last Filed Vital Signs Vital Sign Reading Time Taken Comments Blood Pressure 134/68 06/16/2024 12:07 PM MARINE ERECTOR Pulse 84 06/16/2024 12:07 PM MARINE ERECTOR Temperature 36.3 C (97.4 F) 06/16/2024 12:07 PM MARINE ERECTOR Respiratory Rate 24 06/16/2024 12:07 PM MARINE ERECTOR Oxygen Saturation 98% 06/16/2024 12:07 PM MARINE ERECTOR Inhaled Oxygen Concentration - - Weight 118.8 kg (262 lb) 06/16/2024 12:07 PM MARINE ERECTOR Height 170.2 cm (5' 7 ) 04/29/2024 2:29 PM MARINE ERECTOR Body Mass Index 41.04 04/29/2024 2:29 PM MARINE ERECTOR Plan of Treatment Not on file Insurance [employer] [facility] [employer] PPO POS Member Subscriber Plan / Payer (Ef fective 2020-Present) Name:Elly Gonzalez Member ID:[id number] Relation to Subscriber:Spouse Name:RODRIGO GONZALEZ Subscriber ID:[id number] Date of :1958 (Home) Address: [address] [place] [address] Payer ID:[id number] Type:HEALTHLINK HMO/PPO Address: [address] [place] [id number] [facility] [place] [id number] [employer]ALTHLINK PPO POS Member Subscriber Plan / Payer (Ef fective 2020-Present) Name:Elly Gonzalez Member ID:[id number] Relation to Subscriber:Spouse Name:RODRIGO GONZALEZ Subscriber ID:[id number] Date of :1958 (Home) Address: [address] [place] [address] Payer ID:[id number] Type:HEALTHLINK HMO/PPO Address: [address] [place] [id number] [facility] [place] [id number] Care Teams Objective C Developer Relationship Specialty Start Date End Date Jaye Schaffer MD [address] [place] [address] PCP - General Family Medicine 11/18/17
--- NOTE | 2024-08-11 08:47 | WPDANESEPPF ---
Anes - Initial Pre Proc Eval Procedure: Operation Date: 08/11/24 10:30 Proposed Procedures p C7- T1 Anterior Cervical Discectomy and Fusion - Jared Hussein MD Date/Time: 08/11/24 08:47 Surgeon: Jared Hussein MD Pre Op Diagnosis: c7-t1 left herniated nucleus pulposus Patient Data Age: 58 Gender: F Height: 1.7 m Weight: 118.7 kg Last Vital Signs Temp 98.6 F 06/16/24 10:09 Pulse 56 L 06/16/24 10:09 Resp 16 06/16/24 10:09 BP 134/80 06/16/24 10:09 Pulse Ox 98 06/16/24 10:09 O2 Del Method Room Air 06/16/24 10:09 Allergies Allergy/AdvReac Type Severity Reaction Status Date / Time guaifenesin Allergy Intermediate rash Verified 08/04/24 10:13 theophylline Allergy Intermediate Rash Verified 08/04/24 10:13 Home Medications ?Medication ?Instructions ?Recorded ?Confirmed ?Type diltiazem HCl 120 mg 120 mg PO DAILY 08/17/20 07/17/24 History capsule,extended release 24 hr cholecalciferol (vitamin D3) 125 125 mcg PO DAILY 07/03/21 07/17/24 History mcg (5,000 unit) tablet (Vitamin D3) azelastine 137 mcg (0.1 %) nasal 137 mcg (0.137 mL) intranasal Q12H 03/06/22 07/17/24 Rx spray #30 mL fluticasone propionate 50 1 spray intranasal DAILY #16 grams 03/06/22 07/17/24 Rx mcg/actuation nasal spray,suspension apixaban 5 mg tablet (Eliquis) 5 mg PO Q12H 06/16/24 08/04/24 History fluoxetine 40 mg capsule See Rx Instructions .Route 06/30/24 08/04/24 Rx .COMPLEX #90 caps tizanidine 2 mg tablet 2 mg PO QHS PRN muscle spasticity 07/17/24 08/04/24 Rx #30 tabs tramadol 50 mg tablet 50 mg PO DAILY PRN pain #21 tabs 07/17/24 08/04/24 Rx Patient hx anesthesia problems: other (Pt reports prev aggravation of trig nerve from mask on CPAP, now improved w nasal mask only. ) Family hx anesthesia problems: other Results Review: All pre-operative results and documents have been reviewed as part of the pre-operative evaluation. [facility] Past Medical History Medical History Arthritis in back Back pain pinched nerve Screening mammogram, encounter for Epilepsy Obesity Anxiety Fatty liver Atrial fibrillation History of seizure CECI (obstructive sleep apnea) GERD (gastroesophageal reflux disease) Diverticulosis large intestine w/o perforation or abscess w/bleeding Hypersomnia Insomnia MDD (major depressive disorder) Surgical History Surgical History History of dilation and curettage (09/24/19) hscope d&c--postmenopausal bleeding, benign H/O umbilical hernia repair lap umb hernia repair w mesh davinci assisted 07/11/21 History of knee surgery (~2007) rt knee [place] teeth extracted History of lumpectomy of left breast benign Family History Family History Sibling Family history of thyroid disease Family history of diabetes mellitus in first degree relative Hypertension Family history of elevated blood lipids Breast cancer, Onset Age: 60 sister Mother Hypertension Family history of elevated blood lipids Atrial fibrillation by electrocardiogram Sjogren's syndrome Father Family history of gastrointestinal disorder Family history of elevated blood lipids Family history of coronary artery disease Hypertension Cerebrovascular accident, Onset Age: 67 Daughter Tuberculosis Grandparent Cerebrovascular accident maternal grandfather maternal grandmother Diabetes mellitus maternal grandmother Alcohol abuse paternal grandfather Other Alcohol abuse paternal uncle Breast cancer maternal aunt Other Acute myocardial infarction Social History Social History Social History: Smoking status: Never smoker Second hand tobacco smoke exposure: No Alcohol intake: current Drinks per week: 1 Alcohol use details: 1 per month Substance use: never Substance use type: does not use Do You Feel Safe in your Home?: Yes Lack of Transportation: No Lack of Food: Never True Current Housing: I Have Housing Concerned About Future Housing: No Difficulty Paying Gas/Electric Bills: No Difficulty Paying for Meds: No Currently Unemployed: No Education: Decline to Answer Difficulty w/ Childcare or Family Care: No Living arrangements: with family Additional living arrangements comments: Occupation/Education: occupation 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 [employer] Gender identity (if verbalized by the patient): Female Sexual Orientation (if Verbalized by the Patient): Straight or Heterosexual Spiritual care concerns: No Anes - Eval Final PreProcedure Day of Procedure 08/11/24 08:47 Patient weight: morbidly obese Lungs: normal air movement Airway: Mallampati scale class II Neurological: alert and oriented Last oral intake: >/= 8 hours ASA classification: III Emergent: no Anesthetic plan: proceed Anesthesia type and monitoring: general ETT and standard monitoring Results Review: All pre-operative results and documents have been reviewed as part of the pre-operative evaluation. CECI on CPAP w nasal mask, pafib, now NSR, AC on hold for this surgery. EKG SB. Pre DM. Informed Consent: The patient's anesthetic plan and its attendant risks and benefits were discussed with the patient/family/POA. Questions were solicited and answers provided to the satisfaction of the patient/family/POA.
--- NOTE | 2024-08-11 10:33 | PM.IMHP ---
H&P: HPI History of Present Illness Date/Time: 08/11/24 10:33 Chief Complaint: Neck and arm pain Narrative: Elly is a 58-year-old female with 6-8 month history of pain in her neck radiating to her shoulder blade and then down her left upper extremity into the ulnar digits of the hand. There is numbness, tingling and weakness in the hand. The numbness and tingling is in the 5th digit and half of the 4th digit. It is made worse by certain activities and head positions especially extension. Left lateral rotation is also more painful. It does seem to be worse with activity involving the upper extremity or head. It is only better with rest and lying down but even then it is positional. It is severe limiting for her on a daily basis. She does not report bowel or bladder or gait issues. She has an MRI evaluation of her neck which is available for our review today. She is eager to discuss definitive management of this problem. Review of Systems Review of Systems: All systems reviewed & are unremarkable except as noted in HPI and below Denies chills, Denies fever, Denies weight gain and Denies weight loss Eyes Denies change in vision and Denies diplopia ENT Denies disequilibrium Card Denies chest pain and Denies dyspnea Resp Denies cough and Denies dyspnea GI Denies abdominal pain, Denies change in bowel habits, Denies fecal incontinence and Denies vomiting Denies hematuria, Denies oliguria, Denies difficulty urinating, Denies dysuria, Denies urinary frequency, Denies urinary hesitancy, Denies urinary incontinence and Denies urinary urgency Musc Reports as per HPI Skin/ Breast Reports system reviewed and no additional complaints, except as documented Neuro Reports as per HPI Psych Reports no additional complaints, Denies depression and Denies hopelessness Endo Reports no additional complaints and Denies polyuria Pepe/ Lymph Reports no additional complaints Aller/ Immun Reports no additional complaints PMFSH Past Medical History Medical History Arthritis in back Back pain pinched nerve Screening mammogram, encounter for Epilepsy Obesity Anxiety Fatty liver Atrial fibrillation History of seizure CECI (obstructive sleep apnea) GERD (gastroesophageal reflux disease) Diverticulosis large intestine w/o perforation or abscess w/bleeding Hypersomnia Insomnia MDD (major depressive disorder) Surgical History Surgical History History of dilation and curettage (09/24/19) hscope d&c--postmenopausal bleeding, benign H/O umbilical hernia repair lap umb hernia repair w mesh davinci assisted 07/11/21 History of knee surgery (~2007) rt knee [place] teeth extracted History of lumpectomy of left breast benign Family History Family History Sibling Family history of thyroid disease Family history of diabetes mellitus in first degree relative Hypertension Family history of elevated blood lipids Breast cancer, Onset Age: 60 sister Mother Hypertension Family history of elevated blood lipids Atrial fibrillation by electrocardiogram Sjogren's syndrome Father Family history of gastrointestinal disorder Family history of elevated blood lipids Family history of coronary artery disease Hypertension Cerebrovascular accident, Onset Age: 67 Daughter Tuberculosis Grandparent Cerebrovascular accident maternal grandfather maternal grandmother Diabetes mellitus maternal grandmother Alcohol abuse paternal grandfather Other Alcohol abuse paternal uncle Breast cancer maternal aunt Other Acute myocardial infarction Social History Social History Social History: Smoking status: Never smoker Second hand tobacco smoke exposure: No Alcohol intake: current Drinks per week: 1 Alcohol use details: 1 per month Substance use: never Substance use type: does not use Do You Feel Safe in your Home?: Yes Lack of Transportation: No Lack of Food: Never True Current Housing: I Have Housing Concerned About Future Housing: No Difficulty Paying Gas/Electric Bills: No Difficulty Paying for Meds: No Currently Unemployed: No Education: Decline to Answer Difficulty w/ Childcare or Family Care: No Living arrangements: with family Additional living arrangements comments: Occupation/Education: occupation 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 Gender identity (if verbalized by the patient): Female Sexual Orientation (if Verbalized by the Patient): Straight or Heterosexual Spiritual care concerns: No Meds Home Medications and Allergies Home Medications ?Medication ?Instructions ?Recorded ?Confirmed ?Type diltiazem HCl 120 mg 120 mg PO DAILY 08/17/20 08/11/24 History capsule,extended release 24 hr cholecalciferol (vitamin D3) 125 125 mcg PO DAILY 07/03/21 07/17/24 History mcg (5,000 unit) tablet (Vitamin D3) azelastine 137 mcg (0.1 %) nasal 137 mcg (0.137 mL) intranasal Q12H 03/06/22 07/17/24 Rx spray #30 mL fluticasone propionate 50 1 spray intranasal DAILY #16 grams 03/06/22 07/17/24 Rx mcg/actuation nasal spray,suspension apixaban 5 mg tablet (Eliquis) 5 mg PO Q12H 06/16/24 08/04/24 History fluoxetine 40 mg capsule See Rx Instructions .Route 06/30/24 08/11/24 Rx .COMPLEX #90 caps tizanidine 2 mg tablet 2 mg PO QHS PRN muscle spasticity 07/17/24 08/04/24 Rx #30 tabs tramadol 50 mg tablet 50 mg PO DAILY PRN pain #21 tabs 07/17/24 08/04/24 Rx Allergies Allergy/AdvReac Type Severity Reaction Status Date / Time guaifenesin Allergy Intermediate rash Verified 08/11/24 09:17 theophylline Allergy Intermediate Rash Verified 08/11/24 09:17 Vital Signs Vital Signs - 24 hr 08/11/24 09:19 Temperature 98.6 F Pulse Rate 65 Respiratory Rate 16 Blood Pressure 116/61 Pulse Oximetry 97 Oxygen Delivery Room Air Exam Narrative: General: cooperative, no acute distress, well developed, alert and awake Orientation/Consciousness: oriented to person, oriented to place and oriented to time Constitutional Limitations: no limitations Other: The patient is a normally developed, normal appearing male sitting on the examination table in no acute distress. He is awake, alert, and oriented x3 with good fund of knowledge, recall of events, and fluent speech. [facility] Head: normocephalic and atraumatic Ears: external ears normal Face/Nose/Sinus: Normal external nose present Eyes Eyelids: eyelids normal Pupils: Yes Pupils normal by confrontation EOM: EOMs intact bilaterally Neck General: Yes no meningeal signs, Yes supple and Yes no JVD Resp Effort/Inspection: normal respiratory effort and able to speak in complete sentences Cardio Rate: Yes regular rate GI Inspection: No abdominal distension Musc Other: Examination of the back reveals no tenderness. Range of motion of the neck is full without pain in forward flexion and right lateral rotation but there is pain in extension and left lateral rotation Skin General: normal color Neuro General: Yes oriented to person, Yes oriented to place, Yes oriented to time, Yes normal cognition and Yes no meningeal signs Cranial Nerves: Yes CN's II-XII intact bilaterally Other: Motor: Strength is normal, 5/5, throughout all muscle groups of the bilateral upper extremities to direct confrontation. 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 Sensory: Sensation is intact to light touch throughout the upper extremities bilaterally. Reflexes: deep tendon reflexes are normal and symmetric at the biceps, triceps and brachioradialis bilaterally. There is no Stephens's. Gait: Gait, station, and transfers are independent and steady for short periods of time and over short distances. Psych Appearance: grossly normal Mental status: Yes mental status grossly normal Mood: congruent mood Affect: Yes normal affect Speech/Movement: Normal speech and movement present Attitude: Yes cooperative Thought Content: Normal thought content present Review of studies: MRI of the cervical spine was personally reviewed by me. This demonstrates degeneration of the discs worst at C4-5 and C5-6 with foraminal stenosis worst bilaterally at C5-6. There is disc herniation in the foramen on the left at C7-T1 which compresses the exiting C8 nerve root. Assessment and Plan Assessment and plan (1) Spondylolysis of cervical spine: Code(s): M43.02 - Spondylolysis, cervical region Status: Acute (2) Cervical disc herniation: Code(s): M50.20 - Other cervical disc displacement, unspecified cervical region Status: Acute Plan Elly is a 58-year-old female with neck and left upper extremity discomfort related to a disc herniation in the foramen on the left at C7-T1. She has weakness in the hand and numbness and the symptoms have been going on for several months. An injection was helpful but unfortunately not permanently. I therefore recommended her a C7-T1 anterior cervical diskectomy and fusion and described to her that operation, its risks, potential benefits, the operative and postoperative course in detail and answered all her questions personally. We discussed risks including but not limited to permanent neurological functional deficit related injury of the trachea, esophagus, carotid artery, jugular vein, recurrent laryngeal nerve causing hoarseness respiration, spinal cord or nerve roots causing permanent neurologic deficit, need for reoperation secondary to infection, bleeding, CSF leak, adjacent level disease, recurrent residual pathology or instability, malposition migration of the hardware or nonunion, failure of the procedure to relieve her pain or symptoms, persistent pain, medical complications related to anesthesia or surgery, etc.. She indicates understanding and elects to proceed with that operation.
--- NOTE | 2024-08-11 10:35 | WPDHPUPDATE1 ---
History and Physical Update Update Date/Time: 08/11/24 10:35 History and Physical has been reviewed, including an updated exam of the patient. There are NO changes in the patient's condition. Risks, benefits, and alternatives have been discussed and questions answered. Patient agrees to proceed with procedure.
[2024-08-11] MEDS: ceFAZolin 2 GM/D5W 50 ML 2 GM/50 ML BAG IVPB (10:59)
[2024-08-11] MEDS: LIDO 1%/EPINEPHRINE 1:100,000 50 ML VIAL 10 ML INFILTRATE (11:37)
[2024-08-11] MEDS: LACTATED RINGERS 1,000 ML 30 ML IV CONT ×2 (12:23)
[2024-08-11] MEDS: fentaNYL CITRATE INJ (*CRX) 100 MCG/2 ML VIAL 25 MCG IV PUSH ×8 (12:40→13:37)
--- NOTE | 2024-08-11 12:44 | P.OP_ITS ---
Procedure Note - Detailed Date of Procedure 08/11/24 Pre-op Diagnosis c7-t1 left herniated nucleus pulposus Post-op Diagnosis Same Procedure Performed C7-T1 complete diskectomy and bilateral neural foraminotomy, C7-T1 interbody arthrodesis utilizing peek interbody device, local autograft and magnetos, anterior cervical plating with locking plate and screws C7-T1, use of the operating microscope Surgeon Jared Hussein MD Anesthesia General Description of Procedure Patient was brought to the operating room in the supine position, was sedated, intubated placed under general anesthesia in routine fashion. There operation on the right side of the neck was examined, marked for incision, prepped and draped in routine sterile fashion. Incision was marked from the midline over the medial aspect of the sternocleidomastoid muscle just above the sternal notch on the right. This area was injected with 0.5% lidocaine with [id number] epinephrine. Intravenous antibiotics given prior to incision. Incision was made with a 10 blade scalpel down to the platysma muscle. The skin was undermined the platysma muscle was divided longitudinally with its fibers using Metzenbaum scissors. Plane was then dissected medial to the sternocleidomastoid muscle down to the anterior aspect of spine using the finger and Metzenbaum scissors. A verifying x-rays obtained to verify the level of operation. The longus colli muscle was dissected free of the anterior aspect of spine a subperiosteal plane using Bovie cautery at C7-T1. Shadow Line retractor system was placed. Jerry pins were placed in C7 and T1 and distraction placed over the disc space. The disc space was entered using a 15 blade scalpel cutting along the margin of the bone above below. A curved curette pituitary rongeur used to remove as much cartilaginous endplate and disc material as possible down to the annulus and ligament posteriorly. Midas-Cam drill was used to bur down the endplates to bleeding cortical flat surfaces as well as to begin a bony foraminotomy bilaterally. A 4-0 curved curette was used to come through the annulus and ligament. 2. Kerrison punch was used to remove annulus, ligament, posterior osteophyte and to complete a bony foraminotomy bilaterally. Lack of compression was confirmed by passing a nerve hook out into the foramen to confirm lack of compression. The disc space was sized and a 6 mm interbody device was chosen and filled with magnetos and local autograft bone. This was then tamped into the interspace to 1-2 mm countersink. A 12 mm anterior plate was chosen placed in position and secured using 4 14 x 4 mm anterior screws advanced into the locking mechanism the plate to hand tightness. The locking mechanism was then engaged at each screw. A verifying x-rays obtained to verify good position of the instrumentation which was confirmed. The wound was then copiously irrigated with bacitracin irrigation all bleeding stopped with bipolar and Bovie cautery and Gelfoam thrombin powder. The wound was then closed in layered fashion with 3-0 Vicryl interrupted sutures in the platysma muscle and the dermis. The skin was closed with a running 4-0 Monocryl subcuticular stitch and dressed with Dermabond. The patient was allowed wake up in the operating room and was taken to the bijal very room in stable condition. There were no immediate complications of this operation. All counts reported correct the end of the case. Blood loss was 10 cc. The patient was neurologically at her baseline postoperatively. CPT codes: 10545, 28834, 72389, 41148, 07691
[2024-08-11] MEDS: KCL 20 MEQ/D5/0.45% SOD CHL 1,000 ML 100 ML IV CONT (14:47)
[2024-08-11] MEDS: TIZANIDINE HCL 2 MG TABLET PO ×2 (15:00→21:36)
[2024-08-11] MEDS: HYDROcodone/acetaminophen (*CRX) 10-325 MG TABLET 1 TAB PO ×2 (15:00→18:47)
--- NOTE | 2024-08-11 19:16 | ADMGEN ---
This patient, Elly Gonzalez, was admitted to 3 [facility] Surg Room 328-01. Patient/family oriented to hospital policies and general routines including ID bracelet, bed and alarms, visiting hours, pain management, procedures, bathroom and other care routines, personal items, smoking policy, room service/diet, and visiting hours. Information on how to activate the Rapid Response Team has been discussed. Patient/Family are encouraged to report perceived risks to care and to ask questions if they do not understand what they are told or what they should do.
[2024-08-11] MEDS: DOCUSATE SODIUM 100 MG CAPSULE PO (21:36)
[2024-08-11] MEDS: HYDROcodone/acetaminophen (*CRX) 5-325 MG TABLET 1 TAB PO (21:36)
[2024-08-11] MEDS: WATER FOR IRRIGATION, STERILE 1,000 ML BOTTLE 1000 ML (21:45)
--- NOTE | ~2024-08-12 | XR_ITS ---
EXAMINATION: XR fluoroscopy no charge DATE: 08/11/2024 12:12 INDICATION: C7-T1 anterior cervical discectomy and fusion TECHNIQUE: 3 fluoroscopic images of the spine were obtained during procedure performed by Dr. Ewa kennedy. Radiologist was not present for the imaging or procedure. The amount of fluoroscopy time used duri ng this procedure was 0.1 minutes. Total DAP was 0.378 Gycm^2. COMPARISON: None. FINDINGS: Grade 1 retrolisthesis C2 on C3 and C3 on C4. Cervical spondylosis with moderate disc height loss at C4-C5 and moderate to severe disc height loss at C5-C6. The tip of a metallic probe projects near the C6-C7 disc space which is obscured due to underpenetration resulting from the patient's shoulders. E ndotracheal tube tube in expected position anterior to the cervical spine. IMPRESSION: 1. Fluoroscopy utilized during neurosurgical procedure at the lower cervical spine. See procedure not e for further detail. Reviewed, dictated and finalized at location B. IMPRESSION: 1. Fluoroscopy utilized during neurosurgical procedure at the lower cervical sp ine. See procedure note for further detail.
[2024-08-12 03:26] VITALS: BP 110/61; PULSE 65; RESP 18; TEMP 36.6; O2SAT 93
[2024-08-12] MEDS: CHOLECALCIFEROL 5,000 UNITS TABLET 5000 UNITS PO (08:43)
[2024-08-12] MEDS: HYDROcodone/acetaminophen (*CRX) 10-325 MG TABLET 1 TAB PO (08:43)
[2024-08-12] MEDS: FLUoxetine HCL 20 MG CAPSULE 40 MG BY MOUTH (08:43)
[2024-08-12] MEDS: DOCUSATE SODIUM 100 MG CAPSULE PO ×2 (08:43→20:00)
[2024-08-12] MEDS: dilTIAZem HCL CD 120 MG CAP.24HR PO (08:43)
[2024-08-12] MEDS: AZELASTINE HCL NASAL 0.1% 137 MCG/SPR 30 ML BTL 1 SPRAY NASAL ×2 (08:51→20:01)
[2024-08-12] MEDS: FLUTICASONE PROPIONATE 0.05% NA SPR 16 GM BTL (*BKC) 1 SPRAY NASAL (08:51)
[2024-08-12 09:00] VITALS: BP 116/61; PULSE 59; RESP 14; TEMP 36.4; O2SAT 95
--- NOTE | 2024-08-12 12:28 | ECG_ITS ---
Test Date: 2024-08-12 12:42:46 Measurements Intervals [place] Rate: 56 P: 40 PA: 133 QRS: 38 QRSD: 97 T: 22 QT: 416 QTc: 403 Interpretive Statements SINUS BRADYCARDIA BORDERLINE ECG Compared to ECG 06/16/2024 10:57:10 No significant changes Electronically Signed On 08-12-2024 12:50:50 CDT by Oc Harkins D.O.
[2024-08-12 13:00] VITALS: BP 120/57; PULSE 59; RESP 14; TEMP 36.7; O2SAT 96
[2024-08-12 13:06] LABS: Troponin I < 0.012 ng/mL (0.000-0.034)
--- NOTE | 2024-08-12 14:38 | WPDANESPN ---
Anes - Prog Note Post-Op Date/Time: 08/12/24 14:38 Cardiovascular status: normal Respiratory status: normal Airway patency: baseline Mental status: baseline Post-Op hydration status: normal Vital Signs: Last Vital Signs Temp 36.7 C 08/12/24 13:00 Pulse 59 L 08/12/24 13:00 Resp 14 08/12/24 13:00 BP 120/57 L 08/12/24 13:00 Pulse Ox 96 08/12/24 13:00 O2 Del Method Room Air 08/12/24 09:58 O2 Flow Rate 6 08/11/24 12:50 Pain Score (VAS): 2 I/O: Intake & Output 08/11/24 08/12/24 08/12/24 23:59 07:59 15:59 Intake Total 860 118 Balance 860 118 08/12/24 12:38 Troponin I < 0.012 Post-procedural complaints: none Patient Feedback: Patient satisfied with anesthetic care.
--- NOTE | 2024-08-12 15:29 | WPDNEUROSGPN ---
Progress Note: A&P Assessment and Plan (1) Cervical disc herniation: Code(s): M50.20 - Other cervical disc displacement, unspecified cervical region Status: Acute Assessment and Plan: Assessment: Pod 1 status post ACDF C7-T1. Complain of sternal chest pain / heaviness. Otherwise doing well. Plan: - Given chest pain, obtain EKG and serial troponins - reviewed EKG, no significant change from preoperative EKG & 1st troponin WNL - if cardiac workup remains WNL, okay for discharge - if troponin comes back abnormal, Cardiology consult - continue pain control Time Spent With Patient Time with patient: less than 15 minutes Subjective Date/time seen: 08/12/24 15:29 Interval history: POD 1 ACDF C7-T1 by Dr. Hussein. States upper extremity symptoms have improved since surgery. Does endorse some neck pain, well control of medication. Complains of mild sternal chest pain and heaviness today. Denies shortness of breath, palpitations, diaphoresis, indigestion or nausea/vomiting, dizziness, etc.. Patient does have AFib and takes Eliquis and diltiazem. Denies history of chest pain. Denies difficulty swallowing. Resting comfortably in bed. at bedside. Exam Narrative: Awake, alert, no acute distress. A&O x4. Incision clean, dry, intact. Sensation light touch intact and no more motor strength in upper extremities. Normal respiratory effort. No diaphoresis. Objective Data Vital Signs Vital Signs: Vital Signs - 24 hr 08/11/24 15:30 08/11/24 16:00 08/11/24 20:11 Temperature 97.6 F 97.7 F 97.4 F L Pulse Rate 62 64 57 L Respiratory Rate 20 20 16 Blood Pressure 112/60 110/62 115/66 Pulse Oximetry 98 98 96 Oxygen Delivery 08/11/24 23:20 08/12/24 03:26 08/12/24 09:00 Temperature 97.4 F L 97.9 F 97.5 F L Pulse Rate 52 L 65 59 L Respiratory Rate 18 18 14 Blood Pressure 117/60 110/61 116/61 Pulse Oximetry 94 93 95 Oxygen Delivery 08/12/24 09:58 08/12/24 13:00 Temperature 98.1 F Pulse Rate 59 L Respiratory Rate 14 Blood Pressure 120/57 L Pulse Oximetry 96 Oxygen Delivery Room Air Intake/Output Intake/Output: Intake & Output 08/09/24 08/10/24 08/11/24 08/12/24 23:59 23:59 23:59 23:59 Intake Total 1560 118 Balance 1560 118 Meds/Results Medications: Active Medications Generic Name Dose Route Start Last Admin Trade Name Freq PRN Reason Stop Dose Admin Hydrocodone Bitart/Acetaminophen 1 tab 08/11/24 14:00 08/11/24 21:36 Hydrocodone/Acetaminophen (*Crx) 5-325 Mg Tablet PO 1 tab Q4H PRN Administration Mild Pain (1-3) Hydrocodone Bitart/Acetaminophen 1 tab 08/11/24 14:00 08/12/24 08:43 Hydrocodone/Acetaminophen (*Crx) 10-325 Mg Tablet PO 1 tab Q4H PRN Administration Moderate Pain (4-6) Al Hydrox/Mg Hydrox/Simethicone 20 ml 08/11/24 14:00 Mag Hydrox/Al Hydrox/Simeth 30 Ml Udc PO Q4H PRN Indigestion/Heartburn Azelastine HCl 1 spray 08/11/24 21:00 08/12/24 08:51 Azelastine Hcl Nasal 0.1% 137 Mcg/Spr 30 Ml Btl NASAL 1 spray Q12HR LILIAM Administration Bisacodyl 10 mg 08/11/24 14:00 Bisacodyl 10 Mg Suppository RECTAL DAILY PRN Constipation Diltiazem HCl 120 mg 08/12/24 09:00 08/12/24 08:43 Diltiazem Hcl Cd 120 Mg Cap.24hr PO 120 mg DAILY LILIAM Administration Docusate Sodium 100 mg 08/11/24 21:00 08/12/24 08:43 Docusate Sodium 100 Mg Capsule PO 100 mg Q12HR LILIAM Administration Fluoxetine HCl 40 mg 08/12/24 09:00 08/12/24 08:43 Fluoxetine Hcl 20 Mg Capsule BY MOUTH 40 mg DAILY LILIAM Administration Fluticasone Propionate 1 spray 08/12/24 09:00 08/12/24 08:51 Fluticasone Propionate 0.05% Na Spr 16 Gm Btl (*Bkc) NASAL 1 spray DAILY LILIAM Administration Ondansetron HCl 4 mg 08/11/24 14:00 Ondansetron Inj 4 Mg/2 Ml Vial IV PUSH Q8H PRN Nausea And Vomiting Senna/Docusate Sodium 1 tab 08/11/24 14:00 Senna/Docusate Sodium Tablet PO HS PRN Constipation Tizanidine HCl 2 mg 08/11/24 14:00 08/11/24 21:36 Tizanidine Hcl 2 Mg Tablet PO 2 mg QHS PRN Administration muscle spasticity Vitamin D 5,000 units 08/12/24 09:00 08/12/24 08:43 Cholecalciferol 5,000 Units Tablet PO 5,000 units DAILY LILIAM Administration Radiology Results: ITS Impressions Fluoroscopy 08/11/24 12:54 IMPRESSION: 1. Fluoroscopy utilized during neurosurgical procedure at the lower cervical spine. See procedure note for further detail. Labs Labs: Laboratory Results - last 24 hr 08/12/24 12:38 Troponin I < 0.012
[2024-08-12 17:00] VITALS: BP 117/53; PULSE 54; RESP 14; TEMP 36.1; O2SAT 95
[2024-08-12] MEDS: MAG HYDROX/AL HYDROX/SIMETH 30 ML UDC 20 ML PO (19:58)
[2024-08-12] MEDS: HYDROcodone/acetaminophen (*CRX) 5-325 MG TABLET 1 TAB PO (19:59)
[2024-08-13 00:03] VITALS: PULSE 70; O2SAT 94
[2024-08-13 06:54] VITALS: BP 115/60; PULSE 56; RESP 16; TEMP 36.3; O2SAT 96
[2024-08-13] MEDS: AZELASTINE HCL NASAL 0.1% 137 MCG/SPR 30 ML BTL 1 SPRAY NASAL (08:07)
[2024-08-13] MEDS: FLUTICASONE PROPIONATE 0.05% NA SPR 16 GM BTL (*BKC) 1 SPRAY NASAL (08:07)
[2024-08-13] MEDS: DOCUSATE SODIUM 100 MG CAPSULE PO (08:08)
[2024-08-13] MEDS: CHOLECALCIFEROL 5,000 UNITS TABLET 5000 UNITS PO (08:10)
[2024-08-13 08:15] VITALS: PULSE 56; RESP 16; O2SAT 96
[2024-08-13] MEDS: FLUoxetine HCL 20 MG CAPSULE 40 MG BY MOUTH (08:15)
[2024-08-13] MEDS: MAG HYDROX/AL HYDROX/SIMETH 30 ML UDC 20 ML PO (08:16)
[2024-08-13 14:00] VITALS: BP 120/55; PULSE 66; RESP 20; TEMP 36.2; O2SAT 95
--- NOTE | 2024-08-23 10:49 | P.DS_ITS ---
DS: Admitting Diagnosis Discharge Date 08/13/24 Admitting Diagnosis C7-T1 herniated nucleus pulposus DS: Discharge Diagnosis Discharge Diagnosis (1) Cervical disc herniation: Code(s): M50.20 - Other cervical disc displacement, unspecified cervical region Status: Acute DS: Summary Hospital Course Hospital Course: Patient was taken the operating room on 08/12/2024 with the aforementioned C7-T1 anterior cervical diskectomy and fusion was performed without complication. The patient went to the floor postoperatively. On postoperative day 1 she was eating, ambulating, emptying her bladder pain was under control with by mouth pain medicine. Her wound remained clean, dry and intact. She was afebrile with stable vital signs. She was therefore allowed to be discharged home. Status at Discharge Functional status at discharge: independent ambulation Time Spent with Patient Time attestation: Total time spent providing and/or coordinating discharge services: Discharge Plan Discharge Attending physician on discharge: Jared Hussein Consulting providers: Zack Rinaldi Discharging Clinician: Jared Hussein Anticipated Discharge Date/Time: 08/13/24 17:38 Patient Disposition: Home Activity: may shower Diet: as tolerated Wound Care Instructions: other - see discharge instructions Discharge Instructions: INSTRUCTIONS AFTER YOUR CERVICAL FUSION (ANTERIOR OR POSTERIOR)/CERVICAL DISC REPLACEMENT (ARTHRODESIS) * Incisions may be closed with either: * Steri-strip tapes (let them wear off on their own). * Surgical glue (let it peel off on its own). * Sutures or braden (call the office for an appointment to have these removed). * Keep the incision dry for the first three days after surgery. Never apply ointments or lotions to the incision. * The incision should be checked daily. Notify the office if there is drainage, redness, or if you have fever with a temperature of over 100 degrees. * After the third postop day, it is okay to shower. Let soap and water run over your incision. No soaking in a tub, hot tub, or pool for at least one month. * You are encouraged to walk as much as comfortable, with assistance as needed. For example, it may be beneficial to walk short distances hourly during the waking hours and gradually increase walking during your recovery period. Fatigue can be common. * If a collar has been instructed by your physician, follow the instructions you were given. Please call the office for clarification if needed. * Avoid any bending or heavy lifting. You have an [id number]-pound lift restriction until further advised by your physician (A gallon of milk weighs eight pounds). * Sometimes a bone growth stimulator will be used after surgery. Instructions for the use of the stimulator will come from your player services representative. * Make frequent position changes, avoiding long periods of sitting. Try not to sit more than 30 minutes at a time. * You may engage in sexual activity in two weeks as tolerated. * No housework, especially vacuuming, making beds, or doing laundry until seen in the office. * You may walk stairs carefully. * Minimize car rides for two weeks. Driving can usually be resumed after three to four weeks; however, you may not drive at that time if still taking pain medications, or if you are still wearing your hard collar. * Once you are discharged from the hospital, please call the office to set up your postop appointment. * The physician may order pain medication and/or muscle relaxers. As time goes by, you should require less of these. Always take your medication as ordered, and only if needed. If you take more than prescribed, it will not be refilled early. If you feel you require narcotic medication refill, kindly give the office a 72-hour notice. No refills are given over the weekend. * Avoid use of anti-inflammatory meds (like Ibuprofen, Aleve, Advil, Motrin) for up to three months following fusion surgery. Use of these medications may slow healing. Over the counter Tylenol products may be used but use caution mixing Tylenol with your pain medication. The common pain pills include Acetaminophen as an ingredient, you could cause liver damage by taking too much. Tylenol and Acetaminophen are the same drug. * Resume your usual diet. Constipation is a common problem postop, especially when taking narcotic pain meds. You may use any over the counter laxative, or stool softener, following the bottle directions. * Use of nicotine products should be stopped completely. Smoking can slow the healing process significantly. It can also increase the chance for developing postop pneumonias and other complications. Please avoid use of all nicotine products for at least three months after your surgery. * FOR AN EMERGENCY AFTER HOURS OR ON A WEEKEND, PLEASE CALL THE MEDICAL EXCHANGE AT * Call the office for: * Appointment set up. * Fever greater than 101 degrees. * Increased pain, swelling, redness or drainage from your incision. * Trouble swallowing or breathing. * Pain, swelling or weakness of your legs. * Any other question or concerns you may have. Patient Instructions: Antibiotic Form Patient Language: Tajik Stand Alone Forms: General Discharge Information Follow-up/Referrals: Jared Hussein MD [Physician] - Discharge Medications: New hydrocodone-acetaminophen 5-325 mg tablet 1 - 2 tablet PO Q4H PRN (Reason: pain) Qty: 30 0RF Continued diltiazem HCl 120 mg capsule,extended release 24hr 120 mg PO DAILY azelastine 137 mcg (0.1 %) aerosol,spray 137 mcg intranasal Q12H Qty: 30 0RF Rx Instructions: administer into each nostril fluticasone propionate 50 mcg/actuation spray,suspension 1 spray intranasal DAILY Qty: 16 0RF Rx Instructions: administer into each nostril cholecalciferol (vitamin D3) [Vitamin D3] 125 mcg (5,000 unit) Tablet 125 mcg PO DAILY fluoxetine 40 mg capsule See Rx Instructions .ROUTE .COMPLEX Qty: 90 0RF Dose Instruction: TAKE 1 CAPSULE BY MOUTH DAILY Rx Instructions: TAKE 1 CAPSULE BY MOUTH DAILY Held Eliquis 5 mg tablet 5 mg PO Q12H Hold Instructions: Resume on 08/20/24. Discontinued tramadol 50 mg tablet 50 mg PO DAILY PRN (Reason: pain) Qty: 21 0RF No Action tizanidine 2 mg tablet See Rx Instructions .ROUTE .COMPLEX Qty: 30 0RF Dose Instruction: TAKE 1 TABLET BY MOUTH EVERY DAY AT BEDTIME NEEDED FOR MUSCLE SPASTICITY Rx Instructions: TAKE 1 TABLET BY MOUTH EVERY DAY AT BEDTIME NEEDED FOR MUSCLE SPASTICITY Date of admission: 08/12/24 16:19 Primary Care Provider: Dean Lomeli Admitting Provider: Jared Hussein Attending physician on admission: Jared Hussein Condition: Improved
== END 2024-08-13 18:20 | disposition home or self-care (01) ==
LOC: ANHSURGERY 16:28 → ANH3MEDSUR 16:28
PROVIDERS: Nurse Practitioner Adult Health; Admitting Provider Neurological Surgery; PCP Family Medicine; Visit Provider Neurological Surgery
PROC: (CPT 63030; principal; 2024-08-11 10:30)
DX: M50.23 Other cervical disc displacement, cervicothoracic region (principal); M43.02 Spondylolysis, cervical region; E66.01 Morbid (severe) obesity due to excess calories; Z68.41 Body mass index [BMI] 40.0-44.9, adult; I48.91 Unspecified atrial fibrillation; Z79.01 Long term (current) use of anticoagulants; Z79.899 Other long term (current) drug therapy
CPT/HCPCS: 22551; 22845; 22853; 20936; 36415; 84484; 86850; 86900; 86901; 93005; 94002; 97116; 97161; 97165; 97530; 97535; 99199; A9270; C1713; G0378; J0690; J1100; J1171; J2003; J2004; J2250; J2405; J2704; J3010; J3480; J7120

== ENCOUNTER 2024-09-24 15:53 | Outpatient (CLI) | payer OTHER, SELFPAY ==
--- NOTE | ~2024-09-24 | XR_ITS ---
Cervical Spine: AP, lateral, open-mouth views Clinical History: Pain COMPARISON: 08/05/2023 Findings: Status post interval anterior fusion from C7 to T1. Stable osseous alignment otherwise. Mod erate to advanced degenerative disc narrowing throughout the cervical spine is again present. Moderat e facet arthropathy throughout the cervical spine present.. Pre-vertebral soft tissues are unremarkab le. Impression: Moderate to advanced degenerative spondylosis of the cervical spine is similar to prior exam. Status post interval anterior fusion from C7 to T1. Reviewed, dictated and finalized at location M. Impression: Moderate to advanced degenerative spondylosis of the cervical spine is similar to prior exam. Status post interval anterior fusion from C7 to T1.
--- OUTSIDE RECORDS SUMMARY | 2024-09-24 16:05 | XMS_ITS ---
Author Organization Unknown Medications Medication Instructions Effective Dates (start - stop) Status 24 HR diltiazem hydrochlorid e 120 MG Extended Release Oral Capsule - Comp leted tizanidine 6 MG Oral Capsule [id number] 0:00:00Z - Completed fluconazole 150 MG Oral Tablet 2023-07-24 T00:00:00Z - Completed prednisone 10 MG Oral Tablet [id number] 0:00:00Z - Completed triamcinolone acetonide 0.00 1 MG/MG Topical Ointment - Completed fluoxetine 40 MG Oral Capsule 2023-11-04 00:00:00Z - Completed 24 HR diltiazem hydrochlorid e 120 MG Extended Release Oral Capsule [Cartia] - Completed tizanidine 2 MG Oral Tablet [id number] :00:00Z - Completed fluoxetine 40 MG Oral Capsule 2023-07-24 00:00:00Z - Completed gabapentin 300 MG Oral Capsule 2023-08-14 T00:00:00Z - Completed tizanidine 2 MG Oral Tablet [id number] :00:00Z - Completed meloxicam 7.5 MG Oral Tablet [id number] 0:00:00Z - Completed 24 HR diltiazem hydrochlorid e 120 MG Extended Release Oral Capsule - Comp leted Patient Care team information Name Category Status Period Participants - - Proposed period not known -
--- OUTSIDE RECORDS SUMMARY | 2024-09-24 16:06 | XMS_ITS | Clinical Summary ---
Author Organization [facility] [employer] [facility] Address [address] Goetzn: Epic Prelude ADT FELIX JOSHI [address] Care Team Providers Care Scalp Treatment Operator Name Role Phone Unavailable Primary Care Provider Unavailabl e Allergies Active Allergy Reactions Criticality Noted Date Comments Xanthines Rash High 10/26/2021 Medications FLUoxetine (PROzac) 10 mg tablet Take 1 Tablet (10 mg) by mouth daily. 90 Tablet 3 3 12:00 PM CDT 10/19/19 Active exenatide microspheres (Bydureon BCise) 2 mg/0.85 mL Auto-Injector Inject 2 mg subcutaneously every 7 days. 3.4 mL 1 10/27/19 22 Active Insulin [place], Disposable, 31 gauge x 5/16 Needle Use as directed 100 Each 2 5:27 PM CDT 10/28/19 22 Active liraglutide (Victoza 2-Marvel) 0.6 mg/0.1 mL (18 mg/3 mL) Inject 0.6 mg subcutaneously once daily for 7 days, then inject 1.2 mg subcutaneously once daily. Not to exceed 1.8 mg per day. 6 mL 5 12/06/19 22 Active liraglutide (Victoza 3-Marvel) 0.6 mg/0.1 mL (18 mg/3 mL) INJECT 0.6 MG UNDER THE SKIN ONCE DAILY FOR 7 DAYS, THEN 1.2 MG UNDER THE SKIN ONCE DAILY, THEN INJECT 1.8 MG UNDER THE SKIN ONCE DAILY THEREAFTER 9 mL 2 2 10:49 AM CDT 12/09/19 22 Active amoxicillin-clav ulanate (AUGMENTIN) 875-125 mg tablet Take 1 Tablet by mouth every 12 hours for 7 days 14 Tablet 2 5:39 PM XRAY TECH 03/06/20 Active azelastine (ASTELIN) 137 mcg/actuation nasal spray Administer 1 spray in each nostril every 12 hours 30 mL 2 5:39 PM XRAY TECH 03/06/20 22 Active fluticasone propionate (FLONASE) 50 mcg/spray [place], Suspension nasal inhaler Administer 1 spray into each nostril once daily 16 Gram 2 5:39 PM XRAY TECH 03/06/20 22 Active predniSONE (DELTASONE) 10 mg tablet Take 4 tablets by mouth daily for 3 days, then 3 tabs daily for 3 days, then 2 tabs daily for 3 days, and then 1 tab daily for 3 days. 30 Tablet 2 4:48 PM XRAY TECH 03/22/20 22 Active dexAMETHasone (DECADRON) 6 mg Tablet Take 1 tablet ( 6 mg ) by mouth twice daily for 3 days, then take 1/2 tablet ( 3 mg ) by mouth twice daily for 3 days. 9 Tablet 3 5:04 PM XRAY TECH 06/20/19 23 Active diltiaZEM (Cartia XT) 120 mg Controlled Delivery 24 hour capsule Take 1 Capsule (120 mg) by mouth daily. 90 Capsule 1 4 12:02 PM XRAY TECH 12/27/19 23 Active tiZANidine (ZANAFLEX) 2 mg Tablet Take 1 Tablet (2 mg) by mouth 3 times daily as needed for muscle spasticity. 90 Tablet 3 3:52 PM XRAY TECH 03/29/20 23 Active FLUoxetine (PROzac) 20 mg tablet Take 1 Tablet (20 mg) by mouth daily. 90 Tablet 1 4 12:02 PM XRAY TECH 05/13/19 24 Active fluconazole (DIFLUCAN) 150 mg tablet Take 1 tablet by mouth now, then repeat dose in 7 days. 2 Tablet 4 3:16 PM CDT 07/24/19 24 Active triamcinolone acetonide (KENALOG) 0.1 % Ointment Apply to affected area(s) two times daily. 60 Gram 1 4 3:16 PM CDT 07/24/19 24 Active meloxicam (MOBIC) 7.5 mg tablet Take 1 Tablet (7.5 mg) by mouth daily. 30 Tablet 4 5:04 PM CDT 08/05/19 24 Active gabapentin (NEURONTIN) 300 mg capsule Take 1 Capsule (300 mg) by mouth 2 times daily. 60 Capsule 4 11:57 AM CDT 08/14/19 24 Active diltiaZEM (DILACOR XR) 120 mg Extended Release capsule Take 1 capsule (120 mg total) by mouth daily 90 Capsule 1 4 11:48 AM CDT 09/20/19 24 Active FLUoxetine (PROzac) 40 mg capsule Take 1 Capsule (40 mg) by mouth daily. 90 Capsule 1 4 11:53 AM CDT 11/04/19 24 Active apixaban (Eliquis) 5 mg tablet Take 1 tablet (5 mg total) by mouth 2 (two) times a day 60 Tablet 11 04/29/19 25 Active Encounters Date Type Department Care Team Description [...]
--- OUTSIDE RECORDS SUMMARY | 2024-09-24 16:06 | XMS_ITS | Clinical Summary ---
Author Organization [facility] Address [address] [place] [id number] Care Team Providers Care Cylinder Worker Name Role Phone Jaye Schaffer MD Primary [...] once a week 2 Active liraglutide (Victoza 2-Marvle) 0.6 mg/0.1 mL (18 mg/3 mL) injection [...] Comments Blood Pressure 134/68 06/16/2024 12:07 PM TANK BOTTOM ASSEMBLER Pulse 84 06/16/2024 12:07 PM TANK BOTTOM ASSEMBLER Temperature 36.3 C (97.4 F) 06/16/2024 12:07 PM TANK BOTTOM ASSEMBLER Respiratory Rate 24 06/16/2024 12:07 PM TANK BOTTOM ASSEMBLER Oxygen Saturation 98% 06/16/2024 12:07 PM TANK BOTTOM ASSEMBLER Inhaled Oxygen Concentration - - Weight 118.8 kg (262 lb) 06/16/2024 12:07 PM TANK BOTTOM ASSEMBLER Height 170.2 cm (5' 7) 04/29/2024 2:29 PM TANK BOTTOM ASSEMBLER Body Mass Index 41.04 04/29/2024 2:29 PM TANK BOTTOM ASSEMBLER Plan of Treatment Health Maintenance Due Date [...] patient's age to complete this topic Insurance [employer] [facility] HEALTHLINK PPO POS [facility] [id number] HEALTHLINK PPO POS [facility] [id number] Care Teams Cylinder Worker Relationship Specialty Start Date End Date Jaye Schaffer MD [address] [facility] [address] [place] [address] PCP - General Family Medicine 11/18/17
--- OUTSIDE RECORDS SUMMARY | 2024-09-24 16:06 | XMS_ITS | Referral Summary ---
Author Organization [facility] Address [address] [place] [id number] Care Team Providers Care Shearer Operator Name Role Phone Jaye Schaffer MD Primary [...] Comments Blood Pressure 134/68 06/16/2024 12:07 PM HOLE DIGGER Pulse 84 06/16/2024 12:07 PM HOLE DIGGER Temperature 36.3 C (97.4 F) 06/16/2024 12:07 PM HOLE DIGGER Respiratory Rate 24 06/16/2024 12:07 PM HOLE DIGGER Oxygen Saturation 98% 06/16/2024 12:07 PM HOLE DIGGER Inhaled Oxygen Concentration - - Weight 118.8 kg (262 lb) 06/16/2024 12:07 PM HOLE DIGGER Height 170.2 cm (5' 7) 04/29/2024 2:29 PM HOLE DIGGER Body Mass Index 41.04 04/29/2024 2:29 PM HOLE DIGGER Plan of Treatment Not on file Insurance [employer] [facility] HEALTHLINK PPO [facility] [id number] HEALTHLINK PPO POS [facility] [id number] Care Teams Shearer Operator Relationship Specialty Start Date End Date Jaye Schaffer MD [address] [facility] [address] [place] [address] PCP - General Family Medicine 11/18/17
--- OUTSIDE RECORDS SUMMARY | 2024-09-24 16:06 | XMS_ITS | Clinical Summary ---
Author Organization [facility] Address [address] [place] [address] Care Team Providers Care Size Maker Name Role Phone Jaye Schaffer MD Primary Care Provider + Source Comments [facility]non-owned Affiliates and Associated Physician Practices is amultiple site organization consisting of ambulatory clinics and hospital sitesin [place], [place], [place] and [place]. This disclosure is being madepursuant to the Care Everywhere program and may not contain all information available regarding this patient. Last updated 18.[facility] Allergies Active Allergy Reactions Criticality Noted Date [...] 10:46 AM CDT Height 170.2 cm (5' 7) 12/21/2018 10:46 AM CDT Body Mass Index [...] patient's age to complete this topic Insurance [employer] Care Teams Size Maker Relationship Specialty Start Date End Date Jaye Schaffer MD [address] [place] [address] PCP - General Family Medicine 08/21/17
== END 2024-09-24 15:54 | disposition home or self-care (01) ==
PROVIDERS: PCP Family Medicine; Visit Provider Neurological Surgery
DX: M50.20 Other cervical disc displacement, unspecified cervical region (principal); M47.812 Spondylosis without myelopathy or radiculopathy, cervical region
CPT/HCPCS: 72040

== ENCOUNTER 2025-01-28 07:31 | Outpatient (CLI) | payer OTHER, SELFPAY ==
--- NOTE | ~2025-01-28 | MM_ITS ---
EXAMINATION: MM screening samuel BI w joanna HISTORY: Screening TECHNIQUE: Craniocaudal and mediolateral oblique 3-D tomosynthesis images were obtained and synthetic 2-D images were generated. CAD analysis was submitted and interpreted. COMPARISON: 02/14/2022 BREAST PARENCHYMAL COMPOSITION: There are scattered areas of fibroglandular density. FINDINGS: There is no evidence of suspicious mass, calcification, or architectural distortion to suggest malignancy. There has been no suspicious interval change. IMPRESSION: 1. No mammographic evidence of malignancy. Recommend routine screening mammography in one year. BI-RADS Category 2: Benign finding(s) Reviewed, dictated and finalized at location Q. IMPRESSION: 1. No mammographic evidence of malignancy. Recommend routine screening mammogra phy in one year. BI-RADS Category 2: Benign finding(s)
--- OUTSIDE RECORDS SUMMARY | 2025-01-28 07:36 | XMS_ITS | Encounter Summary ---
Author Organization [facility] Address [address] [place] [address] Care Team Providers Care Wool Hat Finisher Name Role Phone Jaye Schaffer MD Primary Care Provider + Encounter Details Date Type Department Care Team (Late st Contact Info) Description 01/13/2025 Lab Requisition [facility] - DermPath Lab [address] [place] [id number] Blanca Lopes DO [address] [facility] [address] [place] [address] Rash and other nonspecific skin eruption Social History Tobacco Use Types Packs/Day Years Used Date Smoking Tobacco: Never Smokeless Tobacco: Never Comments No Sex and Gender Information Value Date Recorded Sex Assigned at Not on file Legal Sex Female 4:15 PM CDT Gender Identity Not on file Sexual Orientation Not on file documented as of this encounter Plan of Treatment Not on file documented as of this encounter Procedures Procedure Name Priority Date/Time Associated Diagnosis Comments DERMATOPATHOLOGY Routine 01/13/2025 12:4 5 PM CDT Rash and other nonspecific skin eruption documented in this encounter Results * DERMATOPATHOLOGY (01/13/2025 12:45 PM CDT) Case Report Dermatopathology Report Case: [id number] Authorizing Provider: Blanca Lopes DO Collected: 01/13/2025 12:45 PM Ordering Location: [facility] Physician [facility] - Received: 01/14/2025 11:55 AM DermPath Lab Pathologist: Nikki Gamez MD Specimen: Skin, right upper back 3:47 PM T DERMATOPATHOLOGY LABORATORY Final Diagnosis Specimen A. 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 The specimen consists of a punch biopsy measuring 6x6x8 mm. Jar 0. 3:47 PM [facility]ERMAT[facility]ATHOLOGY [facility]ORAT[facility] Microscopic Description Specimen A. SKIN, right upper back: There is focal parakeratosis and focal spongiosis of the epidermis. There is a superficial perivascular and interstitial and deep perivascular inflammatory infiltrate composed of lymphocytes and plasma cells with focal sclerosis of collagen. Eosinophils are not seen. The kris-eccrine adipose tissue is diminished. CD34 immunostain shows decreased dermal dendritic cells. Verhoeff-Van Gieson (VVG) elastic stain highlights dermal elastic fibers with horizontal distribution, as well as focally diminished elastic fibers in the superficial dermis. Grocott's methenamine silver (GMS) stain fails to highlight fungal elements in the available sections. COMMENT: The clinical image provided by the clinician is reviewed. 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 In addition, given the presence of spongiosis and underlying superficial perivascular and interstitial lymphoid infiltrate, a superimposed component of early lichen sclerosus cannot be excluded. This case was also reviewed by Dr. Stephie Russell, who agrees. 3:47 PM [facility]ERMATOPATHOLOGY [facility]ORATORY Disclaimer An external and internal positive and negative controls are appropriate for the histochemical, immunohistochemical and immunofluorescence stain(s) in this case (if any), except where stated explicitly. The performance characteristics of the stain(s) cited in this report were developed and its performance characteristic determined by the Dermatopathology Laboratory at [facility], directed by Dr. Candace Liu. These tests need not be, and therefore are not, approved by the [place] Food and Drug Administration. The tests are used for clinical purposes. Billing Codes Specimen Charges Stain Charges 45128 1 45988 79697 12352 1 1 1 5 3:47 PM CDT DERMATOPATHOLOGY LABORATORY Embedded Images 3:47 PM CDT DERMATOPATHOLOGY LABORATORY Pathology/Cytolo gy TISSUE SPECIMEN FROM SKIN / Unknown 01/13/2025 12:45 PM CDT 01/14/2025 11:55 AM CDT Blanca Lopes DO LAB - PATHOLOGY/CYTOLOGY ORDERABLES Final Result DERMATOPATHOLOGY LABORATORY [facility] - Department of Dermatology [facility] Specialized Medicine [address] [place] [address], [address] [phone] documented in this encounter Visit Diagnoses Diagnosis Rash and other nonspecific skin eruption documented in this encounter Care Teams Wool Hat Finisher Relationship Specialty Start Date End Date Jaye Schaffer MD [address] [place] [address] PCP - General Family Medicine 08/21/17 documented as of this encounter
--- OUTSIDE RECORDS SUMMARY | 2025-01-28 07:36 | XMS_ITS | Clinical Summary ---
Author Organization [employer] Address [address] Goetzn: Epic Prelude ADT FELIX JOSHI [address] Care Team Providers Care Bottle Labeler Name Role Phone Unavailable Primary Care Provider [...] 3.4 mL 1 10/27/19 22 Active Insulin [place], Disposable, 31 gauge x 5/16 Needle Use [...] 7 days 14 Tablet 2 5:39 PM FAMILY LAW SPECIALIST 03/06/20 Active azelastine (ASTELIN) 137 mcg/actuation nasal spray Administer 1 spray in each nostril every 12 hours 30 mL 2 5:39 PM FAMILY LAW SPECIALIST 03/06/20 22 Active fluticasone propionate (FLONASE) 50 mcg/spray [place], Suspension nasal inhaler Administer 1 spray into each nostril once daily 16 Gram 2 5:39 PM FAMILY LAW SPECIALIST 03/06/20 22 Active predniSONE (DELTASONE) 10 mg tablet Take 4 tablets by mouth daily for 3 days, then 3 tabs daily for 3 days, then 2 tabs daily for 3 days, and then 1 tab daily for 3 days. 30 Tablet 2 4:48 PM FAMILY LAW SPECIALIST 03/22/20 22 Active dexAMETHasone (DECADRON) 6 mg Tablet Take 1 tablet ( 6 mg ) by mouth twice daily for 3 days, then take 1/2 tablet ( 3 mg ) by mouth twice daily for 3 days. 9 Tablet 3 5:04 PM FAMILY LAW SPECIALIST 06/20/19 23 Active diltiaZEM (Cartia XT) 120 mg Controlled Delivery 24 hour capsule Take 1 Capsule (120 mg) by mouth daily. 90 Capsule 1 4 12:02 PM FAMILY LAW SPECIALIST 12/27/19 23 Active tiZANidine (ZANAFLEX) 2 mg Tablet Take 1 Tablet (2 mg) by mouth 3 times daily as needed for muscle spasticity. 90 Tablet 3 3:52 PM FAMILY LAW SPECIALIST 03/29/20 23 Active FLUoxetine (PROzac) 20 mg tablet Take 1 Tablet (20 mg) by mouth daily. 90 Tablet 1 4 12:02 PM FAMILY LAW SPECIALIST 05/13/19 24 Active fluconazole (DIFLUCAN) 150 mg [...] day 60 Tablet 11 04/29/19 25 Active Immunizations Immunization Administration Dates Next Due INFLUENZA [...] Comments DTAP/TDAP/TD VACCINES (1 - Tdap) 11/28/1983 HPV/Cotest (21-29) 1985 CERVICAL CANCER SCREENING 1994 HPV/Cotest (30-65) 1994 PAP SMEAR 1994 BREAST CANCER SCREENING 2004 COLORECTAL SCREENING 2009 Colorectal Cancer Screening 2009 FIT-DNA Q 3 years 2009 FIT/FOBT Q 1 year 2009 Flex Sig/CT Colonography Q 5 years 2009 ZOSTER VACCINE (1 of 2) 2014 INFLUENZA VACCINE (#1) 2024 3, 01/13/2022 RSV VACCINE (60+ or ) (1 - 1-dose 75+ series) 11/28/2039 HEPATITIS B VACCINES Aged Out No long er eligible based on patient's age to complete this topic Insurance RX [facility] [employer] ([employer]) [facility] [employer]
--- OUTSIDE RECORDS SUMMARY | 2025-01-28 07:37 | XMS_ITS | Clinical Summary ---
Author Organization [facility] Building B Address [address] [place] [id number] Care Team Providers Care [employer] Mechanic Name Role Phone Jaye Schaffer MD Primary [...] Encounters Date Type Department Care Team Description 01/05/2025 Orders Only [facility] Cardiology [address] [place] [id number] Provider, MD Merry from Last 3 Months Immunizations Immunization Administration [...] Comments Blood Pressure 134/68 06/16/2024 12:07 PM [employer] Pulse 84 06/16/2024 12:07 PM [employer] Temperature 36.3 C (97.4 F) 06/16/2024 12:07 PM [employer] Respiratory Rate 24 06/16/2024 12:07 PM [employer] Oxygen Saturation 98% 06/16/2024 12:07 PM [employer] Inhaled Oxygen Concentration - - Weight 118.8 kg (262 lb) 06/16/2024 12:07 PM [employer] Height 170.2 cm (5' 7) 04/29/2024 2:29 PM [employer] Body Mass Index 41.04 04/29/2024 2:29 PM [employer] Plan of Treatment Health Maintenance Due Date Last Done Comments Breast Cancer Screening-Mammogram 1965 Cervical Cancer Screening 1964 Colon Cancer Screening-Colonoscopy 1964 Depression Screening 1964 Hepatitis C Screening 1964 DTaP/Tdap/Td Vaccine (1 - Tdap) 11/28/1975 Hepatitis B Screening 1982 Regular Well Visit/Exam 18-64 1982 Zoster Vaccine (1 of 2) 2014 Influenza Vaccine (#1) 2024 3, 01/13/2022, 01/25/2018, Additional history exists Pneumococcal vaccine <65 Aged Out No longer eligible based on patient's age to complete this topic Procedures Procedure Name Priority Date/Time Associated Diagnosis Comments ECG 12-LEAD Routine 01/05/2025 6:45 PM CDT from Last 3 Months Results * ECG 12 lead (01/05/2025 6:45 PM CDT) us Historical Provider ECG ORDERABLES Edited Re sult - Final from Last 3 Months [facility] [employer] PPO POS [facility] [id number] [employer] PPO POS [facility] [id number] Member Subscriber Plan / Payer ( fective 2020-Present) Name:Elly Gonzalez Member ID:[id number] Relation to Subscriber:Spouse Name:RODRIGO GONZALEZ Subscriber ID:[id number] Date of :1958 (Home) Address: [address] [place] [address] Payer ID:[id number] Type:HEALTH[employer] HMO/PPO Address: [employer] CLAIMS [address] [place] [id number] Care Teams Tire Mechanic Relationship Specialty Start Date End Date Jaye Schaffer MD [address] [facility] [address] [place] [address] PCP - General Family Medicine 11/18/17
--- OUTSIDE RECORDS SUMMARY | 2025-01-28 07:37 | XMS_ITS | Clinical Summary ---
Author Organization [facility] Address [address] [place] [address] Care Team Providers Care [employer] Name Role Phone Jaye Schaffer MD Primary Care Provider + Source Comments [facility],non-owned Affiliates and Associated Physician Practices is amultiple site organization consisting of ambulatory clinics and hospital sitesin [place], [place], [place] and [place]. This disclosure is being madepursuant to the Care Everywhere program and may not contain all information available regarding this patient. Last updated 18.[facility] Allergies Active Allergy Reactions Criticality Noted Date Comments Theophylline Other 08/21/2017 Dehydration, happened as child. Corticosteroids Rash Medium 08/21/2017 Medications * Be aware that medications may not be up to date on this document. Alwaysverify current medications with the patient. FLUoxetine HCl (PROZAC PO) Active Encounters Date Type Department Care Team Description 01/13/2025 Lab Requisition [facility] - DermPath Lab [address], [place] [address] Blanca Lopes DO Rash and other nonspecific skin eruption from Last 3 Months Social History Tobacco Use Types Packs/Day Years [...] 11/23/1982 DTAP/TDAP/TD VACCINES (1 - Tdap) 11/28/1983 PAP with HPV 1994 PNEUMOCOCCAL VACCINE 50+ (1 of 1 - PCV) 2014 ZOSTER VACCINE (1 of 2) 2014 SCREENING FOR DIABETES 08/21/2017 DEPRESSION SCREENING 04/15/2024 COVID-19 VACCINE (1 - 2023-2 5 season) 2024 INFLUENZA VACCINE (#1) 2024 Respiratory Syncytial Virus (RSV) Vaccine Pt: or over 60 yrs (1 - 1-dose 75+ series) 11/28/2039 HEPATITIS B VACCINE Aged Out No longe r eligible based on patient's age to complete this topic HIB VACCINE Aged Out No longer eligi [...] CDT Rash and other nonspecific skin eruption from Last 3 Months Results * DERMATOPATHOLOGY (01/13/2025 12:45 PM CDT) Case Report Dermatopathology Report Case: [id number] Authorizing Provider: Blanca Lopes DO Collected: 01/13/2025 12:45 PM Ordering Location: [facility] - Received: 01/14/2025 11:55 AM DermPath Lab Pathologist: Nikki Gamez MD Specimen: Skin, right upper back 3:47 PM CDT DERMATOPATHOLOGY LABORATORY Final Diagnosis Specimen A. 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 The specimen consists of a punch biopsy measuring 6x6x8 mm. Jar 0. 3:47 PM CDT DERMATOPATHOLOGY LABORATORY Microscopic Description Specimen A. SKIN, [...] Dr. Stephie Russell, who agrees. 3:47 PM CDT DERMATOPATHOLOGY LABORATORY Disclaimer An external and internal positive and negative controls are appropriate for the histochemical, immunohistochemical and immunofluorescence stain(s) in this case (if any), except where stated explicitly. The performance characteristics of the stain(s) cited in this report were developed and its performance characteristic determined by the Dermatopathology Laboratory at [facility], directed by Dr. Candace Liu. These tests need not be, and therefore are not, approved by the [place] Food and Drug Administration. The tests are used for clinical purposes. Billing Codes Specimen Charges Stain Charges 97054 1 92040 [id number] 32670 1 1 1 3:47 PM CDT DERMATOPATHOLOGY LABORATORY Embedded Images 3:47 PM CDT DERMATOPATHOLOGY LABORATORY Pathology/Cytolo gy TISSUE SPECIMEN FROM SKIN / Unknown 01/13/2025 12:45 PM CDT 01/14/2025 11:55 AM CDT us Blanca Lopes DO LAB - PATHOLOGY/CYTOLOGY ORDERABLES Final Result DERMATOPATHOLOGY LABORATORY [facility] - Department of Dermatology [facility] [address] [place] [address], [address] [place] [address], [facility] [phone] from Last 3 Months Insurance [employer] Care Teams [employer] Relationship Specialty Start Date End Date Jaye Schaffer MD [address] [facility] [address] [place] [address] PCP - General Family Medicine 08/21/17
== END 2025-01-28 07:32 | disposition home or self-care (01) ==
LOC: CHSIMG 07:34
PROVIDERS: PCP Family Medicine; Visit Provider Obstetrics & Gynecology
DX: Z12.31 Encounter for screening mammogram for malignant neoplasm of breast (principal)
CPT/HCPCS: 77063; 77067